=== PATIENT | female | born 1990 | race Caucasian/White ===

== ENCOUNTER 2023-01-18 07:40 | Day surgery (SDC) | payer BC, SELFPAY ==
[2023-01-18] MEDS: DOXYCYCLINE HYCLATE 200 MG in 0.9 % SODIUM CHLORIDE Mini-bag 100 ML 100 MG IVPB (07:25)
[2023-01-18 07:59] VITALS: BP 108/69; PULSE 61; RESP 16; TEMP 36.7; O2SAT 100
[2023-01-18 08:00] VITALS: BMI 25.3
[2023-01-18 08:09] LABS: Hemoglobin* 11.9 gm/dL (12.0-16.0)
[2023-01-18] MEDS: LACTATED RINGERS 1000 ML 1,000 ML 100 ML IV (08:20)
[2023-01-18] MEDS: SODIUM CHLORIDE 0.9 % (FLUSH) 10 ML SYRINGE IVF (08:20)
--- NOTE | 2023-01-18 08:23 | PM.PROC ---
Procedure Note Time Seen by Provider: : Date Seen: 01/18/23 Date of procedure: 01/18/23 Will [facility] bill your pro fee for this procedure?: Yes Procedure Description: Preoperative diagnosis: Swapnil is a 32-year-old 5 para 2123 with a missed at 5 and 5/7 weeks gestation by ultrasound. Postoperative diagnosis: Same Procedure: Suction curettage Anesthesia: Conscious sedation, paracervical block Surgeon: Lucero Benson MD Cashier Office: Not applicable IV fluid: 600 mL Estimated blood loss: 5 mL Specimen: Products of conception to pathology Findings: On exam under anesthesia: the uterus was approximately 8 weeks size, mid-position. Cervical os was closed without active bleeding. Adnexa were without mass or fullness palpable. The uterus sounded to 9 cm. On suction curettage there was a moderate amount of products of conception. Procedure: Swapnil was taken to the operating room where conscious sedation was found to be adequate. She was placed in the dorsal lithotomy position and an exam under anesthesia was performed with with findings stated above. She was then prepped and draped in normal sterile manner. A bivalve speculum was placed in the vagina to visualize the cervix. A paracervical block was placed using 0.5% Marcaine: 5 mL injected at the 4 and 8 o'clock positions on the cervix. The anterior lip of the cervix was grasped with a long Allis clamp. The cervix was dilated to Hegar # 9. A # 9 curved curette was then advanced into the uterus without difficulty. A suction curettage was then performed using 40-50 mmHg pressure. 3 passes with the curette were performed to remove all visualized tissue. The curette was removed and mild, sharp curettage was performed to verify that all of the products of conception had been removed. One last pass with the curved curette was then made to verify that all of the tissue had been removed. The Allis clamp was removed from the anterior lip of the cervix. Nothing was needed to obtain hemostasis. Excellent hemostasis was noted. The speculum was then removed from the vagina. The patient tolerated this procedure well. Sponge, lap and instrument counts were correct x2 the end of the procedure. The patient was awakened from sedation and taken to the recovery area in stable condition.
[2023-01-18] MEDS: BUPIVACAINE 0.5% 30 ML INJECTION (09:04)
[2023-01-18 09:25] VITALS: BP 111/73; PULSE 67; RESP 16; TEMP 36.4; O2SAT 100
[2023-01-18 09:42] VITALS: BP 105/72; PULSE 48; RESP 16; O2SAT 100
--- NOTE | 2023-01-18 09:44 | W.ANESCHARGE ---
Anesthesia Charges Start Date/Time Anesthesia Start Date: 01/18/23 Anesthesia Start Time: 08:50 Stop Date/Time Anesthesia Stop Date: 01/18/23 Anesthesia Stop Time: 09:25
[2023-01-18 10:00] VITALS: BP 107/68; PULSE 55; RESP 16; TEMP 36.5; O2SAT 99
[2023-01-18 10:31] VITALS: BP 102/57; PULSE 68; RESP 16; O2SAT 100
--- NOTE | 2023-01-18 11:43 | W.ANESCHARGE ---
Anesthesia Charges Start Date/Time Anesthesia Start Date: 01/18/23 Anesthesia Start Time: 08:50 Stop Date/Time Anesthesia Stop Date: 01/18/23 Anesthesia Stop Time: 09:25
== END 2023-01-18 10:44 | disposition home or self-care (01) ==
PROVIDERS: Visit Provider Obstetrics & Gynecology
PROC: (CPT 59820; principal; 2023-01-18 09:00)
DX: O02.1 Missed abortion (principal); Z3A.01 Less than 8 weeks gestation of pregnancy
CPT/HCPCS: 59820; 01965; 36415; 85018; 86850; 86900; 86901; 88305; J1100; J1885; J2250; J2405; J2704; J3010; J3490; J7120

== ENCOUNTER 2023-05-08 11:59 | Day surgery (SDC) | payer BC, SELFPAY ==
[2023-05-08] VITALS (54 sets, daily range): BP systolic 92–126; BP diastolic 54–91; PULSE 57–88; RESP 14–20; TEMP 35.7–37.2; O2SAT 93–100
[2023-05-08 12:20] LABS: Basophils Percent Auto 0.3 % (0.0-3.0); Eosinophils Percent Auto 0.1 % (0.0-7.0); Hematocrit 33.7 % (33.0-51.0); Hemoglobin* 11.4 gm/dL (12.0-16.0); Immature Granulocytes Pct Auto 0.2 %; Lymphocytes Percent Auto 11.3 % (20-44); Mean Corpuscular HGB Conc 34 gm/dL (32-36); Mean Corpuscular Hemoglobin 30 pg (26-34); Mean Corpuscular Volume 89 fL (80-100); Monocytes Percent Auto 5.2 % (0.0-11.0); Neutrophils Percent Auto 82.9 % (42.0-72.0); Platelet Count* 311 K/uL (140-440); RDW Coefficient of Variation % 11.6 % (11.5-15.5); Red Blood Count 3.77 m/uL (4.00-5.20); White Blood Count* 13.37 K/uL (4.50-11.00)
[2023-05-08 12:22] LABS: Slide Review Reflex No
[2023-05-08] MEDS: fentaNYL 100 MCG/2 ML inj 50 MCG IVP ×4 (12:24→20:46)
--- NOTE | 2023-05-08 12:25 | CRLHL7_ITS ---
For Patients: As a result of the Century Cures Act, medical imaging exams and procedure reports are released immediately into your electronic medical record. You may view this report before your referring provider. If you have questions, please contact your health care provider. INDICATION: Right lower quadrant pain. Positive test. FINDINGS: No intrauterine gestational sac. Endometrial thickness 6 mm. Uniform echotexture of the myometrium. The left ovary 5 x 3 x 5 cm. Normal color and spectral Doppler blood flow. A dominant 2.6 cm cyst/follicle with other physiologic subcentimeter follicles. Right ovary 3 x 2 x 2 cm. Small cysts/follicles. Normal color and spectral Doppler blood flow. Echogenic heterogeneous material in the retrouterine cul-de-sac and bilateral adnexa does not peristalse like bowel and is suspected to be hemorrhage. IMPRESSION : 1. No intrauterine . Presumed hemorrhage in the retrouterine cul-de-sac and bilateral adnexa concerning for ectopic . Beta HCG is 2677. Gynecology referral recommended for treatment of presumed ectopic. Site of the ectopic is not demonstrated. Dictated by Raymond Daniel MD @ 05/08/2023 2:56:06 PM (Electronically Signed)
--- NOTE | 2023-05-08 12:28 | ED.ABDPAIN ---
HPI - Abdominal Pain General Date Seen: 05/08/23 Chief Complaint: Abdominal Pain Stated Complaint: R side abdominal pain Time Seen by Provider: 05/08/23 12:10 History of Present Illness HPI narrative: This is a pleasant 33-year-old female who is G6, P3 (2 previous miscarriages, diagnosed with a positive test this morning) who is referred from the urgent care in [place] for evaluation of right lower quadrant abdominal pain, rectal pain with a positive test. Per the patient she was and underwent a miscarriage with D and C about 4 months ago in December. It does not sound like there were any complications of that procedure. She has had menstrual cycles for the past few months. She had a menstrual cycle sometime in the middle of March, ending perhaps April 09. Her most recent episode of vaginal bleeding began roughly April 25 for April 26 and ended last week. The. Was typical in terms of length and amount of bleeding, but was a bit early in timing compared to the proceeding cycle. She is sexually active. She has not had any other symptoms of or any suspicion that she might be . She was awoken from sleep at about 3:00 a.m. this morning with right lower quadrant pain. There was intense. It made her nauseous and dizzy. She felt lightheaded but did not faint. He got a bit better after a while but never completely went away. She thought she might need to have a bowel movement but was really not able to successfully pass a stool. She did pass a small BM with no change in her symptoms. She has not had any urinary symptoms. No bloody urine. She is not having any vaginal bleeding or discharge. No suprapubic or uterine cramping. No upper abdominal pain. She is not febrile. She believes she is Rh positive. Because of her persisting pain she went to the urgent care. Later this morning she also began to develop fullness and pain like a pressure in her rectum. She had a rectal exam performed at the urgent care that was normal. She was transferred here by EMS for ultrasound. In route she was having a lot of pain so received fentanyl 100 mcg per EMS. Blood pressure was normal and stable in route. She is not tachycardic. Which did not receive copies of her blood work from the urgent care. Nurses were able to check labs. From 05/08/2023 at 10:40 a.m. labs indicate that she had a positive urine test. This was a urine sample. From 05/08/2023 at 10:56 a.m., CBC showed WBC 12.5, hemoglobin 11.6, platelet count 291. Absolute neutrophil count 10.5. Absolute lymphocyte count 1.3. No other labs from today. Per EHR here at [facility] on 01/18/2023 hemoglobin was 11.9. She had a D&C on 01/18/2023 by disability benefits specialist, Lucero Benson M.D. for missed Related Data Home Medications Medication Instructions Recorded Confirmed No Known Home Medications 01/17/23 01/18/23 Allergies Allergy/AdvReac Type Severity Reaction Status Date / Time penicillin V Allergy Severe Verified 05/08/23 15:07 pseudoephedrine Allergy Severe Hives Verified 05/08/23 15:07 [From [facility]] [facility] Medical History (Updated 05/08/23 @ 16:06 by Rusty Torrez MD) Health care directive on file ?Z78.9 - Other specified health status (ICD-10) History of delivery ?Z87.51 - Personal history of pre-term labor (ICD-10) Vaginal delivery ?O80 - Encounter for full-term uncomplicated delivery (ICD-10) Surgical History (Updated 02/02/23 @ 12:48 by Kate Henriquez) History of D&C ?Z98.890 - Other specified postprocedural states (ICD-10) History of ear surgery ?Z98.890 - Other specified postprocedural states (ICD-10) Family History (Updated 02/02/23 @ 12:50 by Kate Henriquez) Son Thyroid disease Father High blood pressure Emphysema of lung Social History Smoking Status: Never smoker Do you use any of these nicotine containing products: None How often do you have a drink containing alcohol: 2-3 times a week Alcohol type: beer and wine AUDIT-C Alcohol total score: 3 Non-prescribed substance use: denies use service: No Exam Narrative: Exam Narrative: Constitutional: Appears well-developed and well-nourished. Alert. Conversant. Uncomfortable appearing, does not want to lie flat on her back because that puts unusual pain on her rectum. She has spasms of pain with wincing and crying. HENT: Head: Atraumatic. Nose: Nose normal. Mouth/Throat: Oral mucosa is clear and moist. no trismus. Pharynx normal. Tonsils symmetric. No tonsillar enlargement, erythema, or exudate. Eyes: Conjunctivae normal. EOM normal. Pupils equal, round, and reactive to light. No scleral icterus. Neck: Normal range of motion. Neck supple. No tracheal deviation present. Cardiovascular: Normal rate, regular rhythm. No gallop. No friction rub. No murmur heard. Symmetric radial artery pulses Pulmonary/Chest: Effort normal. No stridor. No respiratory distress. No wheezes. No rales. No rhonchi . No tenderness. Abdominal: Soft. Bowel sounds normal. No distension. No mass. Right lower quadrant> suprapubic> right upper quadrant tenderness. No rebound. No guarding. No CVA tenderness. Musculoskeletal: RUE: Normal range of motion. No tenderness. No deformity LUE: Normal range of motion. No tenderness. No deformity RLE: Normal range of motion. No edema. No tenderness. No deformity LLE: Normal range of motion. No edema. No tenderness. No deformity Lymph: No cervical adenopathy. Neurological: Alert and oriented to person, place, and time. Normal strength. CN II-VII intact. No sensory deficit. GCS eye subscore is 4. GCS verbal subscore is 5. GCS motor subscore is 6. Normal coordination Skin: Skin is warm and dry. No rash noted. No pallor. Normal capillary refill. Psychiatric: Normal mood. Normal affect. Const: Vital Signs, click to edit/add: Vital Signs - 24 hr 05/08/23 12:05 05/08/23 12:15 05/08/23 12:20 Temperature 97.7 F Pulse Rate 78 75 Pulse Rate [Right Pulse Oximeter] 85 Respiratory Rate 18 Blood Pressure Blood Pressure [Ri ght Upper Arm] 122/91 H Pulse Oximetry 99 100 100 Oxygen Delivery Me thod Room Air 05/08/23 12:32 05/08/23 13:01 05/08/23 13:54 Temperature Pulse Rate 66 Pulse Rate [Right Pulse Oximeter] Respiratory Rate Blood Pressure 92/62 104/73 Blood Pressure [Ri ght Upper Arm] Pulse Oximetry 100 Oxygen Delivery Me thod 05/08/23 14:00 05/08/23 14:05 05/08/23 14:05 Temperature 96.3 F L Pulse Rate 61 70 Pulse Rate [Right Pulse Oximeter] 63 Respiratory Rate 20 Blood Pressure 99/65 Blood Pressure [Ri ght Upper Arm] 99/65 Pulse Oximetry 99 100 100 Oxygen Delivery Me thod Room Air 05/08/23 14:10 05/08/23 14:20 05/08/23 14:30 Temperature Pulse Rate 63 69 70 Pulse Rate [Right Pulse Oximeter] Respiratory Rate Blood Pressure Blood Pressure [Ri ght Upper Arm] Pulse Oximetry 99 100 100 Oxygen Delivery Me thod 05/08/23 14:32 05/08/23 14:40 05/08/23 14:50 Temperature Pulse Rate 72 67 66 Pulse Rate [Right Pulse Oximeter] Respiratory Rate Blood Pressure 107/65 Blood Pressure [Ri ght Upper Arm] Pulse Oximetry 97 97 100 Oxygen Delivery Me thod 05/08/23 15:00 05/08/23 15:01 05/08/23 15:14 Temperature Pulse Rate 68 73 76 Pulse Rate [Right Pulse Oximeter] Respiratory Rate Blood Pressure 116/76 Blood Pressure [Ri ght Upper Arm] Pulse Oximetry 100 100 100 Oxygen Delivery Me thod 05/08/23 15:20 05/08/23 15:30 05/08/23 15:32 Temperature Pulse Rate 69 71 78 Pulse Rate [Right Pulse Oximeter] Respiratory Rate Blood Pressure 96/60 Blood Pressure [Ri ght Upper Arm] Pulse Oximetry 99 100 100 Oxygen Delivery Me thod 05/08/23 15:40 05/08/23 15:50 Temperature Pulse Rate 74 69 Pulse Rate [Right Pulse Oximeter] Respiratory Rate Blood Pressure Blood Pressure [Ri ght Upper Arm] Pulse Oximetry 99 97 Oxygen Delivery Me thod Course Course Hospital Course: I saw the patient when she arrive by EMS and took report from the EMS provider along with patient's nurse. We performed our initial primary survey. She was hemodynamically stable but uncomfortable. Pain meds ordered. I performed a limited bedside ultrasound at 1220. Procedure: Abdominal ultrasound/fast exam Indication: test, abdominal pain, eval for free intraperitoneal fluid or signs of ectopic Using the convex a array abdominal probe we obtained suprapubic images in the transverse and sagittal plane as well as right upper quadrant images and left upper quadrant images. There is no definite free fluid. Although I am limited by my ultrasound, I am not able to identify a definitive IUP. Not able to confidently identify right ovary. Findings: No free fluid. Vital Signs Vital signs: Initial Vital Signs Temperature 97.7 F 05/08/23 12:05 Temperature Source Temporal Artery Scan 05/08/23 12:05 Pulse Rate 85 05/08/23 12:05 Respiratory Rate 18 05/08/23 12:05 Blood Pressure 122/91 H 05/08/23 12:05 Blood Pressure Mean 101 05/08/23 12:05 Blood Pressure Position Sitting 05/08/23 12:05 Pulse Oximetry 99 05/08/23 12:05 Oxygen Delivery Method Room Air 05/08/23 12:05 Vital Signs Temperature 97.7 F 05/08/23 12:05 Pulse Rate 85 05/08/23 12:05 Respiratory Rate 18 05/08/23 12:05 Blood Pressure 122/91 H 05/08/23 12:05 Pulse Oximetry 99 05/08/23 12:05 Oxygen Delivery Method Room Air 05/08/23 12:05 Temperature 96.3 F L 05/08/23 14:05 Pulse Rate 69 05/08/23 15:50 Respiratory Rate 20 05/08/23 14:05 Blood Pressure 96/60 05/08/23 15:32 Pulse Oximetry 97 05/08/23 15:50 Oxygen Delivery Method Room Air 05/08/23 14:05 MDM - Abdominal Pain MDM Narrative Medical decision making narrative: 33-year-old female who has 2 previous miscarriages, presenting to the ER today from urgent care with concern for right lower quadrant abdominal pain within a surprise positive test. Last episode of vaginal bleeding was about 2 weeks ago but last normal period was perhaps 4 weeks ago. She recently had a miscarriage about 4 months ago so actual date of ovulation and conception is unclear. Initial differential included ruptured ectopic , ovarian cyst or torsion, hemorrhagic cyst, kidney stone, pyelonephritis, appendicitis, among other pathology. Patient was initially quite uncomfortable at presentation. She received serial doses of fentanyl which were only moderately effective. Changed a lot it was more effective for pain control. She remained hemodynamically stable with blood pressure in the low normal range-96/50s. Laboratory workup shows anemia with a hemoglobin 11.9 but this is similar to an unchanged from baseline in December. Given my initial concern we did obtain a bedside fast exam to look for obvious hemoperitoneum at the time presentation and it was normal. We contacted OB to make her aware of this patient and our concern for ectopic. During multiple bedside rechecks she remained hemodynamically stable and pain was better controlled with IV Dilaudid. Patient was sent for a formal obstetrical ultrasound which suggested probable pelvic free fluid (blood) without a clear source of ectopic . There was no evidence for IUP. Since quantitative hCG was 2700, above the discriminatory zone, were highly concerned for ectopic. Patient's pain was improved after Dilaudid and she was remaining hemodynamically stable. Discussed again with OB. Differential would include ruptured ectopic, ruptured hemorrhagic cyst with early viable IUP, as well as other non gynecologic causes of pain such as appendicitis. Ob did not want to take the patient immediately to the OR. We decided to obtain CT imaging to rule out other causes of pain with the plan being that if the patient remained hemodynamically stable she would be admitted to the hospital for pain control, monitoring, serial hemoglobins and plan for repeat ultrasound tomorrow morning. CT scan came back. I reviewed the images myself and was concerned about hemoperitoneum. I called [facility] radiologist to ask them to do a stat read. I called back to [facility] and was able actually talked to the radiologist at 1:59 p.m.. He confirms that this is highly suspicious for ruptured ectopic . It appears that the is probably affecting the left fallopian tube (not the right, where most of her pain was). I again contacted Obstetrics and she came to the ER to evaluate the patient. I updated the patient and her . Patient otherwise healthy. She has no underlying heart or lung disease. She has been NPO since last night. Heart and lungs are clear. She would be an ASA category 1. Lab Data Labs: Lab Results 05/08/23 05/08/23 05/08/23 Range/Units 12:07 12:36 Unknown WBC 13.37 H (4.50-11.00) K/uL RBC 3.77 L (4.00-5.20) m/uL Hgb 11.4 L (12.0-16.0) gm/dL Hct 33.7 (33.0-51.0) % MCV 89 (80-100) fL MCH 30 (26-34) pg MCHC 34 (32-36) gm/dL RDW Coeff of Harjeet 11.6 (11.5-15.5) % Plt Count 311 (140-440) K/uL Neut % (Auto) 82.9 H (42.0-72.0) % Lymph % (Auto) 11.3 L (20-44) % [place] % (Auto) 5.2 (0.0-11.0) % Eos % (Auto) 0.1 (0.0-7.0) % Baso % (Auto) 0.3 (0.0-3.0) % Neut # (Auto) 11.10 H (1.7-7.0) K/uL Lymph # (Auto) 1.50 (0.90-2.90) K/uL Renville # (Auto) 0.70 (0.00-0.90) K/UL Eos # (Auto) 0.00 (0.00-0.50) K/uL Baso # (Auto) 0.00 (0.00-0.30) K/uL Abs Immat Gran (auto) 0.00 (0.00-0.30) K/uL Imm/Tot Granulo (auto) 0.2 % Sodium 135 (135-149) mmol/L Potassium 3.8 (3.6-5.1) mmol/L Chloride 102 (96-114) mmol/L Carbon Dioxide 25 (20-32) mmol/L BUN 13 (5-24) mg/dL Creatinine 0.6 (0.5-1.5) mg/dL Estimated GFR 120 ml/min Glucose 114 (60-115) mg/dL Calcium 9.0 (8.4-10.6) mg/dL HCG, Quant 2677.70 mIU/mL Urine Color Yellow (Yellow) Urine Appearance Clear (Clear) Urine pH 6.0 (5.0-8.5) Ur Specific Friona 1.020 (1.000-1.030) Urine Protein Negative (Negative) Urine Glucose (UA) Negative (Negative) Urine Ketones Negative (Negative) Urine Blood Negative (Negative) Urine Nitrite Negative (Negative) Urine Bilirubin Negative (Negative) Urine Urobilinogen 0.2 (0.2-1.0) Ur Leukocyte Esterase Negative (Negative) Urine RBC 0-2 (0-2) Urine WBC 0-2 (0-5) Ur Squamous Epith Cells Few (None-Few) Urine Bacteria None (None) Blood Type O Positive Antibody Screen NEGATIVE Imaging Data US - abdomen: Attestation: I have reviewed the pertinent imaging results. Radiologist's impression: IMPRESSION : 1. No intrauterine . Presumed hemorrhage in the retrouterine cul-de-sac and bilateral adnexa concerning for ectopic . Beta HCG is 2677. Gynecology referral recommended for treatment of presumed ectopic. Site of the ectopic is not demonstrated. Discharge Plan Discharge Clinical Impression: Hemoperitoneum due to rupture of left tubal ectopic Patient Disposition: XFER to OR Condition: Guarded Follow Up/Referrals: Provider,Not a Local [Referring] -
[2023-05-08] MEDS: ONDANSETRON 2 MG/ML inj 4 MG IVP (12:29)
[2023-05-08 13:06] LABS: Chloride* 102 mmol/L (96-114)
[2023-05-08 13:07] LABS: Potassium* 3.8 mmol/L (3.6-5.1); Sodium* 135 mmol/L (135-149)
[2023-05-08 13:09] LABS: Creatinine* 0.6 mg/dL (0.5-1.5); Estimated Glomerular Filt Rate 120 ml/min
[2023-05-08 13:10] LABS: Blood Urea Nitrogen* 13 mg/dL (5-24); Carbon Dioxide* 25 mmol/L (20-32); Glucose* 114 mg/dL (60-115)
[2023-05-08] MEDS: HYDROmorphone 0.5 mg/0.5 ml inj IVP ×3 (13:38→20:19)
[2023-05-08 14:03] LABS: Appearance Urine Clear (Clear); Bilirubin Urine Negative (Negative); Blood Urine Negative (Negative); Color Urine Yellow (Yellow); Glucose Urine Negative (Negative); Ketones Urine Negative (Negative); Leukocyte Esterase Urine Negative (Negative); Nitrite Urine Negative (Negative); Protein Urine Negative (Negative); Urobilinogen Urine 0.2 (0.2-1.0)
--- NOTE | 2023-05-08 14:07 | ED.NURSE ---
Pain has improved since given Dilaudid. Pt is reading in room, seeming to do okay
[2023-05-08 14:17] LABS: RBC Urine 0-2 (0-2); Squamous Epithelial Cell Urine Few (None-Few); WBC Urine 0-2 (0-5)
--- NOTE | 2023-05-08 14:53 | CRLHL7_ITS ---
For Patients: As a result of the Century Cures Act, medical imaging exams and procedure reports are released immediately into your electronic medical record. You may view this report before your referring provider. If you have questions, please contact your health care provider. INDICATION: Right lower quadrant abdominal pain. TECHNIQUE: CT abdomen and pelvis acquired with 65 cc Isovue 370 IV contrast. COMPARISON: Pelvic ultrasound 05/08/2023. FINDINGS: Lower chest: Unremarkable. Liver: Unremarkable. Normal in size and attenuation. No suspicious masses. Gallbladder and bile ducts: Unremarkable. No stones or inflammation. No biliary ductal dilatation. Spleen: Unremarkable. Normal in size. No masses. Adrenal glands: Unremarkable. No nodules. Pancreas: Unremarkable. No mass or inflammation. Kidneys: Unremarkable. No suspicious masses, stones, or hydronephrosis. GI tract: Unremarkable. Normal in caliber. No sign of mass or inflammation. Normal appendix. Lymph nodes: No lymphadenopathy. Vasculature: Unremarkable. Omentum/Peritoneum/Abdominal Wall: Small volume hemoperitoneum. No free air. Pelvis: Edematous hemorrhagic left adnexa. Bones: Unremarkable for age. IMPRESSION: Small volume hemoperitoneum, likely related to ruptured ectopic given provided history. Given asymmetric edematous hemorrhagic left adnexa, this is likely the site of ectopic . Findings were discussed with Dr. Torrez by Dr. Fiore on 05/08/2023 at 3:59 p.m. Please note that all CT scans at this facility use dose modulation, iterative reconstruction, and/or weight-based dosing when appropriate to reduce radiation dose to as low as reasonably achievable. Dictated by Nicolas Fiore MD @ 05/08/2023 4:02:36 PM (Electronically Signed)
--- NOTE | 2023-05-08 15:16 | ED.NURSE ---
pt reports improved pain, does not feel as much pressure on her bottom.
--- NOTE | 2023-05-08 16:37 | P.GYNCN_ITS ---
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 Patient was seen earlier today at urgent care and transferred to our hospital after test was positive for further evaluation. Patient did not know she was . Patient had lab work completed as well as imaging. HCG was found 2677, hemoglobin at 11.4, WBC: 13.3. Pelvic US completed and final impression No intrauterine . Presumed hemorrhage in the retrouterine cul-de-sac and bilateral adnexa concerning for ectopic . Beta HCG is 2677. Gynecology referral recommended for treatment of presumed ectopic. Site of the ectopic is not demonstrated. A abdominal/pelvic CT scan also completed and final impression: Small volume hemoperitoneum, likely related to ruptured ectopic given provided history. Given asymmetric edematous hemorrhagic left adnexa, this is likely the site of ectopic . Upon evaluation at ER patient is found stable, pain has not been completely managed by IV pain medication. Has experienced some nausea, no vomiting. Has not eaten since last night. Denies vaginal bleeding, abnormal vaginal discharge, denies constipation, diarrhea, dysuria, urgency or frequency. Patient is definitely upset as she experienced a missed December of 2022, this would have been a wanted . 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 No history of STDs, no history of abnormal Pap smears. Past medical history: None Medications: Please see list Allergies: Penicillin, pseudoephedrine Surgical history: Multiple ear surgeries in the , suction D&C x2 2018 and 2022. Social history: Patient is , [id number], she has a bachelor's degree, no smoking, no E cigarette use, no alcohol use, no recreational drug use, no concerns about safety or abuse. Exercises frequently. Family history: Father with history of hyperlipidemia and hypertension cc:: CC: Radha Gamboa MD [facility] Medical History (Updated 05/08/23 @ 16:06 by Rusty Torrez MD) Health care directive on file ?Z78.9 - Other specified health status (ICD-10) History of delivery ?Z87.51 - Personal history of pre-term labor (ICD-10) Vaginal delivery ?O80 - Encounter for full-term uncomplicated delivery (ICD-10) Surgical History (Updated 02/02/23 @ 12:48 by Kate Henriquez) History of D&C ?Z98.890 - Other specified postprocedural states (ICD-10) History of ear surgery ?Z98.890 - Other specified postprocedural states (ICD-10) Family History (Updated 02/02/23 @ 12:50 by Kate Henriquez) Son Thyroid disease Father High blood pressure Emphysema of lung Social History Smoking Status: Never smoker Do you use any of these nicotine containing products: None How often do you have a drink containing alcohol: 2-3 times a week Alcohol type: beer and wine AUDIT-C Alcohol total score: 3 Non-prescribed substance use: denies use service: No Meds Home Medications and Allergies Home Medications Medication Instructions Recorded Confirmed Type No Known Home Medications 01/17/23 01/18/23 History Allergies Allergy/AdvReac Type Severity Reaction Status Date / Time penicillin V Allergy Severe Verified 05/08/23 15:07 pseudoephedrine Allergy Severe Hives Verified 05/08/23 15:07 [From [facility]] 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 GENERAL APPEARANCE: Alert, cooperative female in no acute distress. MOOD & AFFECT: Normal. ABDOMEN: Positive bowel sound. No guarding, no rebound. Tender to deep palpation of lower abdomen. : No abnormal discharge or bleeding. EXTREMITIES: Nonedematous. Well perfused. Nontender. 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 - Results Labs Labs: Short CBC 05/08/23 Range/Units 12:07 WBC 13.37 H (4.50-11.00) K/uL Hgb 11.4 L (12.0-16.0) gm/dL Hct 33.7 (33.0-51.0) % Plt Count 311 (140-440) K/uL BMP 05/08/23 12:07 Sodium 135 Potassium 3.8 Chloride 102 Carbon Dioxide 25 BUN 13 Creatinine 0.6 Glucose 114 Calcium 9.0 Urine 05/08/23 Range/Units Unknown Urine Color Yellow (Yellow) Urine Appearance Clear (Clear) Urine pH 6.0 (5.0-8.5) Ur Specific [place] 1.020 (1.000-1.030) Urine Protein Negative (Negative) Urine Glucose (UA) Negative (Negative) Assessment and Plan Assessment and plan (1) Hemoperitoneum due to rupture of left tubal ectopic : Status: Acute Plan 33 y/o who is seen today after the sudden onset of sharp abdominal/pelvic pain, mostly localized to the RLQ. Patient with positive test. Imaging findings highly concerning for ruptured ectopic . Vital signs have been stable and hemoglobin found slightly low at 11.4mg/dL. Discussion with patient and about findings. In the setting of suspected ruptured ectopic recommended intervention is prompt surgical intervention. Discussed that at this time, it is hard to specifically tell where is the located, but that we believe it is on the left fallopian tube due to CT imaging findings. Since she has been stable and CT findings are not consistent for widespread hemoperitoneum, recommendation is to proceed with l aparoscopic surgery. Discussed that recommendation would be to remove the affected fallopian tube, in the scenario where the is located in an ovary we could try to remove the ectopic and try to salvage the ovary but there is always a risk of needing to remove the affected ovary due to persistent bleeding. Discussed that usually this is an ambulatory procedure but since it is late already that I would expect that she will need to spend the night, discussed post op goals prior to discharge. Discussed risks associated with surgery such as bleeding and needing an emergency blood transfusion, infection, damage to organs nearby such as the bladder, intestine, ureters, risk of blood clots. Discussed interventions to decrease risks. Discussed recovery and restrictions after surgery such as avoiding heavy lifting for at least 3-4 weeks after surgery. Discussed pathology results would be received within a week of surgery and we will notify them, discussed recommended postop follow-up visit in 2 weeks in the clinic. OR crew will be notified and will proceed with surgical intervention within the next hour. Patient and are in agreement with plan.
[2023-05-08 17:15] LABS: Basophils Percent Auto 0.2 % (0.0-3.0); Eosinophils Percent Auto 0.1 % (0.0-7.0); Hematocrit 31.9 % (33.0-51.0); Immature Granulocytes Pct Auto 0.2 %; Mean Corpuscular HGB Conc 35 gm/dL (32-36); Mean Corpuscular Hemoglobin 31 pg (26-34); Mean Corpuscular Volume 89 fL (80-100); Neutrophils Percent Auto 86.5 % (42.0-72.0); Platelet Count* 281 K/uL (140-440); RDW Coefficient of Variation % 11.7 % (11.5-15.5); Red Blood Count 3.58 m/uL (4.00-5.20); White Blood Count* 15.09 K/uL (4.50-11.00)
[2023-05-08 17:23] LABS: Slide Review Reflex No
[2023-05-08 17:35] LABS: Prothrombin Time 13.8 Seconds
[2023-05-08 17:36] LABS: Partial Thromboplastin Time* 24 Seconds (23-33)
[2023-05-08] MEDS: LACTATED RINGERS 1000 ML 1,000 ML 75 ML IV (17:36)
--- NOTE | 2023-05-08 17:39 | ED.NURSE ---
Pt taken back to OR.
[2023-05-08] MEDS: BUPIVACAINE 0.5% 30 ML INJECTION (18:10)
--- NOTE | 2023-05-08 20:16 | P.ANES_ITS ---
Anesthesia Charges Start Date/Time Anesthesia Start Date: 05/08/23 Anesthesia Start Time: 17:36 Stop Date/Time Anesthesia Stop Date: 05/08/23 Anesthesia Stop Time: 20:14 Summary Emergency: [facility] REPRESENTATIVE
--- NOTE | 2023-05-08 20:50 | P.GYNPRC_ITS ---
Procedure Note Date of procedure: 05/08/23 Pre-op diagnosis: Suspected ruptured left ectopic Post-op diagnosis: other (Bleeding left ovarian corpus luteum cyst, of unknown location) Procedure: Diagnostic laparoscopy, evacuation of hemoperitoneum, left ovarian cystectomy, right posterior cul de sac biopsy. Anesthesia: GETA Complications: None Surgeon: Libertad Gamboa MD Estimated blood loss (mL): 50 Pathology: specimen obtained, sent to pathology Condition: stable Disposition: floor Findings: Sterile speculum exam showed a closed, multiparous cervix without evidence of blood or abnormal discharge, no gross lesions. Bimanual exam showed a uterus of about 8-9cm. Intra abdominal survey: Hemoperitoneum, pelvis full of blood and blood clots in the posterior cul de sac, blood seen at the level of the liver with the patient in supine position, hemoperitoneum of 300-400mL. Grossly normal intestines, liver, stomach and appendix. Grossly normal bilateral fallopian tubes, left ovary with 2-3 small cystic structures, one of these was seen to have bright red oozing/bleeding during initial survey. Grossly normal right ovary. Right side posterior cul de sac, medial to the right uterosacral ligament an area of disruption of the peritoneum seen, circular suspicious for disruption by the larger laparoscopic suction device. Procedure Description: Patient was taken to the OR with IV fluid running and pneumatic compression stockings applied to the lower extremities. General anesthesia was obtained without difficulty. The patient was placed in the dorsal lithotomy position with Billy type stirrups with knee bent at 30 degree angles. Patient was prepared and draped under usual sterile technique. Examination under anesthesia with findings as above. The bladder was emptied and Perez catheter placed. Speculum was placed in the vagina. Findings as above. I then changed gloves and attention was placed to the abdomen. Periumbilical skin was infiltrated with 0.25% plain Marcaine. Two Allis clamps were applied to the periumbilical skin for manual elevation of the abdomen. A vertical skin incision was made in the um bilical fold. 5 mm Optiview trocar introduced into the peritoneal cavity without difficulty. Direct visualization confirmed intraperitoneal placement. Pneumoperitoneum was established with CO2 gas to a pressure of 15mmHg. Findings as above. The Trendelenburg position was obtained to facilitate pelvic exposure. Two 5 mm trocars were inserted on the bilateral lower quadrants under direct laparoscopic visualization. Blood clots in the posterior cul de sac were suctioned, but these were too large to completely remove with the small suction/medication coordinator. The left 5mm abdominal port was extended to accommodate a 10mm port and I was able to introduce a larger suction to clear large amount of blood clots. I then turned my attention to the left ovary and oozing from the left ovarian cyst, this was opened to completely evaluate for ectopic . This was found to be a corpus luteum cyst. To be able to accommodate a laparoscopic monopolar paddle, a 4th abdominal port was placed at the level of the umbilicus at least 5cm to the left of the umbilicus and under direct visualization. I tried to coagulate only the bleeding vessels over the cyst, but this was unsuccessful and I had to remove the cystic structure essentially completely with LigaSure device. The base of the cyst, bleeding ovarian stroma was sequentially coagulated utilizing Monopolar device. Hemostasis was secured. Attention was again placed to the posterior cul de sac and peritoneal are as previously described that was seen to have some mild oozing. This was evaluated to be medial to the right uterosacral ligament and utilizing Monopolar device bleeding vessels were coagulated. Bam was also placed to further secure hemostasis. Pneumoperitoneum was allowed to escape to decrease intra-abdominal pressure and reevaluate bleeding sites previously identified and these sites were noted to be hemostatic. Pneumoperitoneum was obtained again and again the abdomen and pelvis were thoroughly inspected. Utilizing a Carlos-Enrique laparoscopic port closure system the 10mm trocar site fascia was closed utilizing Vicryl 0 suture. Trocars removed under direct visualization. The pneumoperitoneum was released, and correct instrument counts were confirmed. Skin incisions were closed with 4-0 Monocryl sutures in a subcuticular fashion. The patient was taken to the recovery room in a stable condition. To the floor for continued overnight observation, since no ectopic identified and corpus luteum removed during surgery, differential diagnosis could include a developing intrauterine and would recommend progesterone supplementation until about 12-13 weeks. This was ordered today.
[2023-05-08] MEDS: KETOROLAC 30 MG/ML inj IVP (21:54)
[2023-05-08] MEDS: LACTATED RINGERS 1000 ML 1,000 ML 125 ML IV (21:55)
[2023-05-09] VITALS (12 sets, daily range): BP systolic 86–105; BP diastolic 47–63; PULSE 70–93; RESP 14–18; TEMP 36.7–37.3; O2SAT 97–99
[2023-05-09] MEDS: OXYCODONE 5 MG TABLET PO ×3 (02:30→14:30)
[2023-05-09 02:43] LABS: Hematocrit 29.8 % (33.0-51.0); Hemoglobin* 9.9 gm/dL (12.0-16.0); Immature Granulocytes Pct Auto 0.1 %; Lymphocytes Percent Auto 4.8 % (20-44); Mean Corpuscular HGB Conc 33 gm/dL (32-36); Mean Corpuscular Hemoglobin 30 pg (26-34); Mean Corpuscular Volume 90 fL (80-100); Monocytes Percent Auto 5.8 % (0.0-11.0); Neutrophils Percent Auto 89.3 % (42.0-72.0); Platelet Count* 262 K/uL (140-440); RDW Coefficient of Variation % 11.8 % (11.5-15.5); White Blood Count* 13.52 K/uL (4.50-11.00)
[2023-05-09 02:46] LABS: Slide Review Reflex No
[2023-05-09 02:56] LABS: Creatinine* 0.6 mg/dL (0.5-1.5); Estimated Glomerular Filt Rate 120 ml/min
[2023-05-09] MEDS: KETOROLAC 30 MG/ML inj IVP ×2 (04:09→09:44)
[2023-05-09] MEDS: LACTATED RINGERS 1000 ML 1,000 ML 125 ML IV (05:09)
--- NOTE | 2023-05-09 07:47 | PC.NURSE ---
Pt alert and oriented x3. Afebrile. Pt reports 4/10 pain in abdomen, pain managed with PRN medications. Pt has 4 lap sites that are CDI. Bowel sounds are active. Pt had soft blood pressures overnight corrections corporal MD Gamboa updated,?CBC was ordered, pt?s hbg was 9.9, updated, orders were given to continue to monitor with hourly vitals.?Pt reports having soft blood pressures for baseline. ?I think I have only ever been 120 or higher twice in my life, I generally run in low 100s or high 90s.? Pt?s who is at bedside confirmed this as well.?Pt denies chest pain, SOB, and N/V. Pt was able to sit and stand at bed side for a few mins but reported feeling ?a little lightheaded? while standing and sat back down. Pt has linton catheter in place, it is patent and draining. ?
--- NOTE | 2023-05-09 13:39 | P.DS_ITS ---
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 Indication for surgery: Suspicion of a rupture left ectopic . Intraoperative findings were notable for: Sterile speculum exam showed a closed, multiparous cervix without evidence of blood or abnormal discharge. Uterus of about 8cm. Intra abdominal survey: Hemoperitoneum, pelvis full of blood and blood clots in the posterior cul de sac, blood seen at the level of the liver with the patient in supine position, hemoperitoneum of 300-400mL. Grossly normal intestines, liver, stomach and appendix. Grossly normal bilateral fallopian tubes, left ovary with 2-3 small cystic structures, one of these was seen to have bright red bleeding,during initial survey. Grossly normal right ovary. Right side posterior cul de sac, medial to the right uterosacral ligament an area of disruption of the peritoneum seen, circular suspicious for disruption by the larger laparoscopic suction device. She had an uncomplicated surgery but unfortunately no visible ectopic was seen. Most likely source of her hemoperitoneum is a ruptured left ovarian cyst which was the corpus luteum cyst. Thus, I extensively discussed with patient that her status is of unknown location. This requires close follow up to determine if this is a viable or nonviable . We might never know the exact location of the but we can not determine whether this is viable or not. We do this by trending beta-hCG and possible repeat imaging. If her beta HCGs is rising inappropriately, stays stagnant, or falling, then this would be consider a nonviable and we can offer her treatment in the form of methotrexate. Importantly, I discussed that her corpus luteum cyst was disrupted during the surgery. She will need progesterone supplementation to maintain an intrauterine . Given that there is a chance that this could be an early intrauterine , I recommended progesterone supplementation. Patient became very tearful at this. She does not know if she wants to do prolonged follow up. She had a of unknown viability her last and ended up need a D&C. She had a difficult experience with all the follow ups required. She is wondering if she can opt for a termination. I reassured her that it's entirely her choice how to proceed forward. She and her spouse have not had a chance to thoroughly discuss the options but she's feel overwhelmed with this whole experience. This is very understandable as emergency surgery is scary and we still don't know where her is. She and her spouse will discuss this further. For now, I recommend beta HCG tomorrow and a consult with an OBGYN in clinic sometime this week when we have more information. Postoperative course has been uneventful. Vitals have been stable. She has remained afebrile. Today, on postoperative day 1, she reports the pain is well controlled. She has been able to ambulate Without difficulty. She is tolerating regular diet. She is passing flatus. Perez catheter has been removed, and she is voiding without difficulty. Hospital Course: I saw the patient when she arrive by EMS and took report from the EMS provider along with patient's nurse. We performed our initial primary survey. She was h emodynamically stable but uncomfortable. Pain meds ordered. I performed a limited bedside ultrasound at 1220. Procedure: Abdominal ultrasound/fast exam Indication: test, abdominal pain, eval for free intraperitoneal fluid or signs of ectopic Using the convex a array abdominal probe we obtained suprapubic images in the transverse and sagittal plane as well as right upper quadrant images and left upper quadrant images. There is no definite free fluid. Although I am limited by my ultrasound, I am not able to identify a definitive IUP. Not able to confidently identify right ovary. Findings: No free fluid. 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0 Ur Specific [place] 1.020 Urine Protein Negative Urine Glucose (UA) Negative Urine Ketones Negative Urine Blood Negative Urine Nitrite Negative Urine Bilirubin Negative Urine Urobilinogen 0.2 Ur Leukocyte Esterase Negative Urine RBC 0-2 Urine WBC 0-2 Ur Squamous Epith Cells Few Urine Bacteria None 05/08/23 16:45 WBC 15.09 H RBC 3.58 L Hgb 11.0 L Hct 31.9 L MCV 89 MCH 31 MCHC 35 RDW Coeff of Harjeet 11.7 Plt Count 281 Neut % (Auto) 86.5 H Lymph % (Auto) 9.0 L [place] % (Auto) 4.0 Eos % (Auto) 0.1 Baso % (Auto) 0.2 Neut # (Auto) 13.10 H Lymph # (Auto) 1.40 [place] # (Auto) 0.60 Eos # (Auto) 0.00 Baso # (Auto) 0.00 Abs Immat Gran (auto) 0.00 Imm/Tot Granulo (auto) 0.2 INR APTT Creatinine Estimated GFR Urine Color Urine Appearance Urine pH Ur Specific [place] Urine Protein Urine Glucose (UA) Urine Ketones Urine Blood Urine Nitrite Urine Bilirubin Urine Urobilinogen Ur Leukocyte Esterase Urine RBC Urine WBC Ur Squamous Epith Cells Urine Bacteria Procedures Procedures: Procedures Operation Date: 05/08/23 17:45 Actual Procedure Side Surgeon p DIAGNOSTIC LAPAROSCOPY, EVACUATION OF PNEUMOPERITONEUM, REMOVAL OF BLEEDING LEFT CORPUS LUTEUM CYST Radha Gamboa MD Discharge Plan Discharge Disposition: Home, Self-Care Discharging Surgeon: Myesha Gutierrez MD Follow-Up Appointment: Beta HCG on 05/10/2023. Follow up with [facility] and consult sometime this week Prescriptions: No Action No Known Home Medications Activity Level: No strenuous activity Activity Detail: Pelvic rest until outcome is established. of unknown location. Discharge Diet: Regular Patient Instructions: Acetaminophen (By mouth), Laxative, Stool Softeners (By mouth) (Doculax, Colace, Colace Clear, DSS), Oxycodone, Rapid Release (By mouth), Progesterone (Into the vagina), Surgical Site Infections (DC) Forms: Work/School Release Follow-up: [facility] [Provider Group] - 05/10/23 1:45 pm ( Lab test @ 1:45, [facility] at 2:00 [facility].) Radha Gamboa MD [Staff Physician] - 05/13/23 10:15 am ([facility].) Provider,Not a Local [Referring] - Discharge Orders: Discharge Order (Routine); Ordered 05/09/23 Ordered By: Myesha Gutierrez
--- NOTE | 2023-05-09 19:22 | PC.NURSE ---
shift note: vss stable. pt up ambulating in vivas and room w/o dizziness. lap site x4 intact. abd distended but soft. pt not passing flatus. pt tolerating regular diet. pt voided 400cc. Dr. Gutierrez updated on pt's condition. Pt dc'd to home after review of activity, new meds and pain scale. IV dc'd intact rt AC. Belongings sent with pt at [facility].
== END 2023-05-09 16:45 | disposition home or self-care (01) ==
LOC: ED 16:06 → SS 16:14 → MEDSURG 21:20
PROVIDERS: Emergency Provider Emergency Medicine; PCP Family Medicine; Visit Provider Obstetrics & Gynecology
PROC: (CPT 59150; principal; 2023-05-08 17:30)
DX: O00.90 Unspecified ectopic pregnancy without intrauterine pregnancy (principal); N83.12 Corpus luteum cyst of left ovary; K66.1 Hemoperitoneum
CPT/HCPCS: 58662; 49321; 49322; 36415; 74177; 76801; 76817; 76830; 76856; 80048; 81001; 82565; 840; 84702; 85025; 85610; 85730; 86850; 86900; 86901; 88305; 88342; 93976; 99140; 99285; A9270; J0330; J0665; J1100; J1170; J1885; J2175; J2250; J2405; J2704; J3010; J7120; Q9967

== ENCOUNTER 2023-05-10 14:05 | Outpatient (CLI) | payer BC, SELFPAY ==
--- NOTE | 2023-05-10 14:00 | CRLHL7_ITS ---
For Patients: As a result of the Century Cures Act, medical imaging exams and procedure reports are released immediately into your electronic medical record. You may view this report before your referring provider. If you have questions, please contact your health care provider. INDICATION: Follow-up possible ectopic COMPARISON: 05/08/2013 TECHNIQUE: Real-time delacruz-scale imaging of the pelvis was performed. FINDINGS: Blood products within the cul-de-sac again noted with a volume of 16 cc. Endometrium measures 7 millimeters. Uterus measures 8.5 x 3.7 x 4.8 cm. No intrauterine . Right ovary measures 2.5 x 1.6 x 1.7 cm. Left ovary measures 4.0 x 2.0 x 2.2 cm. There is a small cyst within the left ovary measuring 1.8 cm. IMPRESSION: Blood products in the cul de sac again noted with a volume of 16 cc. No IUP. No discernible ectopic although findings are still suspicious for ectopic given the prior imaging. Current beta hCG not available. Dictated by Jorge White MD @ 05/11/2023 1:25:23 PM (Electronically Signed)
== END 2023-05-10 14:06 | disposition home or self-care (01) ==
LOC: US 14:05
PROVIDERS: PCP Family Medicine; Visit Provider Obstetrics & Gynecology
DX: O36.80X0 Pregnancy with inconclusive fetal viability, not applicable or unspecified (principal); R10.31 Right lower quadrant pain
CPT/HCPCS: 76830; 76856; 84702

== ENCOUNTER 2023-05-13 11:35 | Outpatient (CLI) | payer BC, SELFPAY | END 2023-05-13 11:36 | disposition home or self-care (01) | LOC: NFLDREF 11:36 | PROVIDERS: PCP Family Medicine; Visit Provider Obstetrics & Gynecology | DX: O00.90 Unspecified ectopic pregnancy without intrauterine pregnancy (principal) | CPT/HCPCS: 84702 ==

== ENCOUNTER 2023-06-08 12:37 | Outpatient (CLI) | payer BC, SELFPAY | END 2023-06-08 12:38 | disposition home or self-care (01) | LOC: NFLDREF 12:40 | PROVIDERS: PCP Family Medicine; Visit Provider Obstetrics & Gynecology | DX: O00.90 Unspecified ectopic pregnancy without intrauterine pregnancy (principal) | CPT/HCPCS: 84702 ==

== ENCOUNTER 2024-05-26 08:24 | Outpatient (CLI) | payer BC, SELFPAY ==
[2024-05-26] VITALS (7 sets, daily range): BP systolic 114; BP diastolic 71; PULSE 81–116; RESP 17; TEMP 36.7; O2SAT 96–98
--- OUTSIDE RECORDS SUMMARY | 2024-05-26 08:25 | XMS_ITS | Continuity of Care Document ---
Author Organization [facility] Address [address] [place] [address] Insurance Providers Payer Plan Claims Address Claims Phone Policy Number Group Number Relation Employer Guarantor Name Guarantor Guarantor Address Guarantor Phone [employer] [id number] Self Swapnil Maurice [address] [place] [id number] [employer] [address] [address], [place] [address] [phone] Self Swapnil Leahleightonray [address] [place] [id number] Problems Unknown Problems Results No Results Allergies, adverse reactions, alerts No known allergies and adverse reactions Medications No administered medications reported Vital Signs Date Vital Result Comment 04/20/2024 Body Height [id number] m Body Weight 67.999128159583 kg Body Mass Index 27.96 kg/m2 Social History No smoking Hx information available
--- OUTSIDE RECORDS SUMMARY | 2024-05-26 08:25 | XMS_ITS | Clinical Summary ---
Author Organization [employer] [facility] Address [place] [address] Care Team Providers Care Field Health Officer Name Role Phone Fede, Bianca Orlando MD Primary Care Provider Allergies Active Allergy Reactions Criticality Noted Date Comments Penicillins 04/23/2008 Pseudoephedrine Rash 05/24/2013 Medications Medication Sig Dispensed Refills Start Date End Date Status vitamin-folic acid 1 mg ( RX) tablet/capsule Take 1 tablet by mouth once daily. 0 03/19/2019 Active Breast Pump PurchaseIndicatio ns:Care and examination of lactating mother Electric breast pump for home use. Gestational age at delivery: 40 weeks. Reason for need: return to work. Length of need: 99 months (lifetime use) 1 Each 05/23/2024 Active Breast Pump PurchaseIndicatio ns:Care and examination of lactating mother Electric breast pump for home use. Gestational age at delivery: 40 weeks. Reason for need: return to work. Length of need: 99 months (lifetime use) 1 Each 05/10/2024 05/23/2024 Discontinued (Reorder (E-cancel not sent)) Active Problems Problem Noted Date Diagnosed Date Iron deficiency anemia 04/20/2024 Elderly multigravida in third trimester 02/13/20 24 History of delivery, currently in third trimester 02/13/2024 Marginal insertion of umbili brenda cord affecting management of mother in third trimester 02/13/2024 Overview: Screening non MFM scan 03/01/24 NDICATION: History of labor TECHNIQUE: Limited transabdominal two-dimensional delacruz-scale ultrasound examination. COMPARISON: 02/13/2024, 02/02/2024, 01/19/2024, 01/09/2024 and 11/25/2023 FINDINGS: There is a living fetus in cephalic lie with gestational age of 22 weeks 2 days and EDC of 07/03/2024. The heart rate is measured at 144 beats per minute and the rhythm appears regular. The amniotic fluid volume is within normal limits with single deepest pocket of 4.2 cm. The placenta is anterior and superior to the cervical os. There is no evidence of previa. The inferior edge of the placenta is 2.9 cm from the internal os. Marginal cord insertion at the inferior end of the placenta is demonstrated. The cervical length is normal at 3.9 cm. Cord arterial S/D = 3.5. IMPRESSION: 1. Living fetus in cephalic lie with gestational age of 22 weeks 2 days and EDC of 07/03/2024. 2. Marginal cord insertion at the inferior end of the placenta and inferior placental edge 2.9 cm from the internal os. Dictated by Roberto Orta MD @ 03/02/2024 7:27:15 AM INITIAL LEVEL II SONOGRAM MPP 02/13/24 eferred By: BIANCA MISTRY MD Indications Code 19 weeks gestation of Z3A.19 Advanced maternal age, multigravida 31622 2013 31w4d PTD 2019 molar with D&C 2015 term 01/16 SAB w/ D&C 05/18 ectopic Suspected placental previa with PCP Low Risk NIPT Advanced Maternal Age IMPRESSION: Intrauterine at 19w 6d. presentation is Transverse, head to maternal left. EFW 329 grams, percentile: 55. Growth parameters and estimated weight are appropriate for gestational age. No major structural anomalies identified. No markers for aneuploidy identified. Normal Deepest Vertical Pocket of amniotic fluid: 4.29 cm. Placental location: Anterior, left lateral, low lying. There is a low lying placenta measuring 1.5-1.9cm from the internal os. There is a marginal cord insertion which is at the inferior edge of the placenta. There is no velamentous insertion or vasa previa noted today. The transvaginal cervical length is 4.4 cm. There is no change with transfundal pressure. [facility] High-risk supervision 01/10/2024 Overview: Swapnil Richards : 1990 [facility] ULTRASOUND/TESTING PATIENT Support person name: Chuy ULTRASOUND TYPE: Growth/TVUS REASON FOR VISIT: AMA, low lying placenta, marginal cord insertion NEXT VISIT ALERTS: Final KONG by LMP LMP Date: Patient's last menstrual period was 09/27/2023 (approximate). KONG: 07/03/24 Early US: Date: 11/25/23 GA: 8w2d KONG:07/04/24 PrePregnancy Weight: 133 # 6.4 oz Height: 61.65 BMI: 25 PLANS & FUTURE APPOINTMENTS: ULTRASOUND/GROWTH PLAN: - Through: - Growth: Next TESTING PLAN: - Testing: Through DELIVERY PLAN: - Scheduled delivery: - Preferred delivery location: PRIMARY DIAGNOSIS: 33 y.o. Estimated Date of Delivery: 07/03/24 : Marginal cord insertion MATERNAL Low lying placenta (1.5-1.9 from OS 02/12) AMA 04/2023 ectopic 12/2022 SAB w/ D&C 2015 Term 2019 Molar w/ D&C 2014 31w4d PTD PREVIOUS ULTRASOUNDS: 02/13/24 19w6d EFW 329 grams, percentile: 55. Low lying placenta measuring 1.5- 1.9cm from the internal os. Marginal cord insertion 01/09/24 15w2d EDC 06/30/2024. Anterior placental edge overlies the internal cervical os ECHO: REFERRING PROVIDER/CLINIC: Bianca Mistry MD, [place] Primary provider approves scheduling of recommended ultrasounds/testing: Yes SPECIALISTS/CONSULTS: Include: Specialty MD Clinic Name Phone# [place] and ADDED TO PATIENT CARE TEAM GENETICS: NIPS: Low Risk CARE COORDINATION: PERTINENT LABS: Labs reviewed? Yes Normal? Yes Blood type: O Rh Positive Antibody screen: Negative PERTINENT MEDS: PROCEDURES: IF FGR <10% or EFW <2000 grams: Add FGRPCOM PLAN OF CARE: Original and updated POC 02/13/24 per CB -Return to primary provider for continued care. -No alterations in the delivery plan are necessary. -No medication changes are indicated. -No BPPs or NSTs suggested. -The option of amniocentesis was presented. -Continue cervical length screening through 22-23 weeks' - vaginal progesterone (200mg nightly) should be offered if the cervical length is <25mm. -Recommend follow up growth ultrasound and transvaginal ultrasound at 32 weeks' due to low lying placenta, marginal cord insertion into the inferior edge. Vaginal ultrasound is recommended due to risk of evolving vasa previa with the anatomy of the cord insertion. -The recommended follow up was scheduled with [facility] before the patient left our office today. 11/23/2023 Overview: Estimated Date of Delivery: 07/03/24 Patient's last menstrual period was 09/27/2023 (approximate). GBS- 28wk labs- Last Tdap- 10/06/2020 Last Flu vaccine- 08/31/23 OB Labs: ABORH Date Value Ref Range Status 11/23/2023 O Rh Positive Final ANTIBODY SCREEN Date Value Ref Range Status 11/23/2023 Negative Negative Final TREPONEMA PALLIDUM Date Value Ref Range Status 11/23/2023 Non-Reactive Non-Reactive Final RUBELLA IGG ANTIBODY Date Value Ref Range Status 11/23/2023 6.04 >=1.00 Index Final INTERPRETATION Date Value Ref Range Status 11/23/2023 Positive Final Comment: Presence of detectable IgG antibodies. A positive result generally indicates exposure to the virus or previous vaccination, but is not an indication of active infection or stage of disease. HBSAG Date Value Ref Range Status 11/23/2023 Nonreactive Nonreactive Final HEPATITIS C ANTIBODY Date Value Ref Range Status 11/23/2023 Non-Reactive Non-Reactive Final Comment: Please note, per www.CDC.gov: If a patient is known to be at high risk of HCV infection, or is symptomatic, and the physician's suspicion of HCV infection is high, HCV RNA testing is often employed and is of diagnostic value, even after an initial negative anti-HCV test result. HIV-1/HIV-2 SCREEN Date Value Ref Range Status 11/23/2023 Non-Reactive Non-Reactive Final Comment: HIV-1 p24 and HIV-1/HIV-2 Ab Not Detected. HEMOGLOBIN Date Value Ref Range Status 11/23/2023 10.9 (L) 12.0 - 16.0 g/dL Final PLATELET COUNT Date Value Ref Range Status 11/23/2023 285 140 - 440 thou/cu mm Final CHLAMYDIA PROBE Date Value Ref Range Status 11/23/2023 Negative Final N GONORRHOEAE PROBE Date Value Ref Range Status 11/23/2023 Negative Final Allergies Allergen Reactions Penicillins Sudafed [Pseudoephedrine] Rash OB History Para Term AB Living 7 3 2 1 3 3 SAB IAB Ectopic Multiple Live Births 1 0 1 0 3 # Outcome Date GA Lbr Jorge/2nd Weight Sex Delivery Anes PTL Lv 7 Current 6 Ectopic 05/08/23 FD 5 SAB 01/18/23 9w5d SPONTANEOUS Comments: blighted ovum, D&C 4 Term 12/11/20 40w3d M Vag EPIDURAL N CHERELLE Name: Michael 3 Molar 09/07/19 10w5d 2 Term 02/02/16 41w0d 3.15 kg (6 lb 15 oz) F Vag EPIDURAL N CHERELLE Name: Bel 1 11/22/13 31w4d 1.68 kg (3 lb 11.3 oz) M Vag-Spont EPIDURAL Y CHERELLE Comments: labor Name: DONNY RICHARDS Apgar1: 9 Apgar5: 9 Past Medical History: . Date No Significant Past Medical History Supervision of normal first 05/24/2013 Varicella as a child Past Surgical History: . Laterality Date DILATION AND CURETTAGE 2018 [place] UNLISTED PROCEDURE MIDDLE EAR Tm graft TYMPANOSTOMY as a child Problems (from 11/23/23 to present) No problems associated with this episode. Falguni Way RN ....11/23/2023 2:33 PM Estimated Date of Delivery Comme nts Yes 07/03/2024 Resolved Problems Problem Noted Date Diagnosed Date Resolved Date Low-lying placenta in third trimester 02/13/2024 05/10/2024 Overview: Screening non MFM scan 03/01/24 NDICATION: History of labor TECHNIQUE: Limited transabdominal two-dimensional delacruz-scale ultrasound examination. COMPARISON: 02/13/2024, 02/02/2024, 01/19/2024, 01/09/2024 and 11/25/2023 FINDINGS: There is a living fetus in cephalic lie with gestational age of 22 weeks 2 days and EDC of 07/03/2024. The heart rate is measured at 144 beats per minute and the rhythm appears regular. The amniotic fluid volume is within normal limits with single deepest pocket of 4.2 cm. The placenta is anterior and superior to the cervical os. There is no evidence of previa. The inferior edge of the placenta is 2.9 cm from the internal os. Marginal cord insertion at the inferior end of the placenta is demonstrated. The cervical length is normal at 3.9 cm. Cord arterial S/D = 3.5. IMPRESSION: 1. Living fetus in cephalic lie with gestational age of 22 weeks 2 days and EDC of 07/03/2024. 2. Marginal cord insertion at the inferior end of the placenta and inferior placental edge 2.9 cm from the internal os. Dictated by Roberto Orta MD @ 03/02/2024 7:27:15 AM INITIAL LEVEL II SONOGRAM MPP 02/13/24 eferred By: BIANCA MISTRY MD Indications Code 19 weeks gestation of Z3A.19 Advanced maternal age, multigravida 94893 2013 31w4d PTD 2019 molar with D&C 2015 term 01/16 SAB w/ D&C 05/18 ectopic Suspected placental previa with PCP Low Risk NIPT Advanced Maternal Age IMPRESSION: Intrauterine at 19w 6d. presentation is Transverse, head to maternal left. EFW 329 grams, percentile: 55. Growth parameters and estimated weight are appropriate for gestational age. No major structural anomalies identified. No markers for aneuploidy identified. Normal Deepest Vertical Pocket of amniotic fluid: 4.29 cm. Placental location: Anterior, left lateral, low lying. There is a low lying placenta measuring 1.5-1.9cm from the internal os. There is a marginal cord insertion which is at the inferior edge of the placenta. There is no velamentous insertion or vasa previa noted today. The transvaginal cervical length is 4.4 cm. There is no change with transfundal pressure. 12/31/2022 01/27/2023 Overview: Estimated Date of Delivery: 08/18/23 Patient's last menstrual period was 11/11/2022 (approximate). GBS- Last Tdap- 10/06/20 Last Flu vaccine- 06/17/22 Glucose (GTT) result- Recent Labs 12/30/22 1059 12/30/22 1054 HGB -- 12.1 ABORH -- O Rh Positive RCBANTIBODY -- Negative TREPONEPALLI -- Negative RUBELLAIGG -- 7.98 Positive CHLAMYDIAPRB Negative -- NGONORRPROBE Negative -- Allergies Allergen Reactions ? ? Penicillins ? ? Sudafed [Pseudoephedrine] Rash OB History Para Term AB Living 5 3 2 1 1 3 SAB IAB Ectopic Multiple Live Births 0 0 0 0 3 # Outcome Date GA Lbr Jorge/2nd Weight Sex Delivery Anes PTL Lv 5 Current 4 Term 12/11/20 40w3d M Vag EPIDURAL N CHERELLE Name: Michael 3 Molar 09/07/19 10w5d 2 Term 02/02/16 41w0d 3.15 kg (6 lb 15 oz) F Vag EPIDURAL N CHERELLE Name: Bel 1 11/22/13 31w4d 1.68 kg (3 lb 11.3 oz) M Vag-Spont EPIDURAL Y CHERELLE Comments: labor Name: MADELAINEDONNY Apgar1: 9 Apgar5: 9 Past Medical History: . Date ? ? No Significant Past Medical History ? ? Supervision of normal first 05/24/2013 ? ? Varicella as a child Past Surgical History: . Laterality Date ? ? DILATION AND CURETTAGE 2018 ? ? [place] UNLISTED PROCEDURE MIDDLE EAR Tm graft ? ? TYMPANOSTOMY as a child No data on file. Problems (from 12/29/22 to present) No problems associated with this episode. Michaela Joe RN ....12/31/2022 3:43 PM Encounter for supervision of normal in second trimester 08/13/2020 12/31/2022 06/23/2020 12/31/2022 Overview: Component Latest Ref Rng & Units 11/10/2020 HEMOGLOBIN 12.0 - 16.0 g/dL 10.9 (L) MCV 80 - 100 fL 92 Vaginal/Rectal OB Strep B PCR Negative Estimated Date of Delivery: 12/08/20 Patient's last menstrual period was 03/03/2020. Last Tdap- 10/06/2020 Last Flu vaccine- 06/19/2020 Glucose (GTT) result- Component Latest Ref Rng & Units 09/05/2020 HEMOGLOBIN 12.0 - 16.0 g/dL 9.9 (L) MCV 80 - 100 fL 92 GLUCOSE,GESTATIONAL 65 - 139 mg/dL 92 TREPONEMA PALLIDUM Negative Negative 20 week US: Level 2 US done at [facility] patient was 20 3/7 weeks gestation Allergies Allergen Reactions ? ? Penicillins ? ? Sudafed [Pseudoephedrine] Rash OB History Para Term AB Living 4 2 1 1 1 2 SAB TAB Ectopic Multiple Live Births 0 0 0 0 2 # Outcome Date GA Lbr Jorge/2nd Weight Sex Delivery Anes PTL Lv 4 Current 3 Molar 09/07/19 10w5d 2 Term 02/02/16 41w0d 3.15 kg (6 lb 15 oz) F Vag EPIDURAL N CHERELLE Name: Bel 1 11/22/13 31w4d 1.68 kg (3 lb 11.3 oz) M Vag-Spont EPIDURAL Y CHERELLE Comments: labor Name: DONNY RICHARDS Apgar1: 9 Apgar5: 9 Create lab flowsheet for OB labs- Component Latest Ref Rng & Units 05/26/2020 05/26/2020 05/26/2020 10:37 AM 10:37 AM 10:37 AM HEMOGLOBIN 12.0 - 16.0 g/dL 12.0 MCV 80 - 100 fL 91 ANTIBODY SCREEN Negative Negative SPECIMEN EXPIRATION DATE/TIME 05/29/20 23:59 RUBELLA IGG ANTIBODY Positive 9.29 CHLAMYDIA PROBE N GONORRHOEAE PROBE HIV-1/HIV-2 ANTIBODY Non-Reactive Non-Reactive ABORH O Rh Positive HBSAG Nonreactive Nonreactive TREPONEMA PALLIDUM Negative Negative HEPATITIS C ANTIBODY Non-Reactive Non-Reactive Component Latest Ref Rng & Units 05/26/2020 10:40 AM HEMOGLOBIN 12.0 - 16.0 g/dL MCV 80 - 100 fL ANTIBODY SCREEN Negative SPECIMEN EXPIRATION DATE/TIME RUBELLA IGG ANTIBODY CHLAMYDIA PROBE Negative N GONORRHOEAE PROBE Negative HIV-1/HIV-2 ANTIBODY Non-Reactive ABORH HBSAG Nonreactive TREPONEMA PALLIDUM Negative HEPATITIS C ANTIBODY Non-Reactive Past Medical History: . Date ? ? No Significant Past Medical History ? ? Supervision of normal first 05/24/2013 Past Surgical History: . Laterality Date ? ? [place] UNLISTED PROCEDURE MIDDLE EAR Tm graft ? ? TYMPANOSTOMY as a child No data on file. Problems (from 05/26/20 to present) No problems associated with this episode. Tori Rhoades RN.....06/23/2020 11:33 AM Supervision of other normal 05/26/2020 06/23/2020 09/05/2019 06/23/2020 Overview: Estimated Date of Delivery: 03/30/20 Patient's last menstrual period was 06/24/2019 (approximate). Last Tdap- 11/17/2015 Last Flu vaccine- 08/11/2018 Glucose (GTT) result- too early Allergies Allergen Reactions ? ? Penicillins ? ? Sudafed [Pseudoephedrine] Rash OB History Para Term AB Living 3 1 0 1 0 1 SAB TAB Ectopic Multiple Live Births 0 0 0 0 1 # Outcome Date GA Lbr Jorge/2nd Weight Sex Delivery Anes PTL Lv 3 Current 2 11/22/13 31w4d 1.68 kg (3 lb 11.3 oz) M Vag-Spont EPIDURAL Y CHERELLE Comments: labor Name: MADELAINEDONNY Apgar1: 9 Apgar5: 9 1 Create lab flowsheet for OB labs- Component Latest Ref Rng & Units 08/08/2019 08/08/2019 08/08/2019 9:37 AM 9:37 AM 9:37 AM HEMOGLOBIN 12.0 - 16.0 g/dL 12.2 MCV 80 - 100 fL 91 ANTIBODY SCREEN Negative Negative SPECIMEN EXPIRATION DATE/TIME 08/11/19 23:59 RUBELLA IGG ANTIBODY Positive 10.80 HIV-1/HIV-2 ANTIBODY Non-Reactive Non-Reactive ABORH O Rh Positive HBSAG Nonreactive Nonreactive TREPONEMA PALLIDUM Negative Negative Past Medical History: . Date ? ? No Significant Past Medical History ? ? Supervision of normal first 05/24/2013 Past Surgical History: . Laterality Date ? ? MIDDLE EAR SURGERY Tm graft ? ? TYMPANOSTOMY as a child No data on file. Problems (from 09/04/19 to present) No problems associated with this episode. CAROLYN Charles.....09/05/2019 8:26 AM History of delivery, currently 08/15/2015 02/06/2018 care, subsequent 07/15/2015 02/06/2018 Overview: Flu shot 07/15/2015 Hx delivery at 31w4d, will need progesterone shots starting at 16 weeks. It's a girl! GBS NEGATIVE HEMOGLOBIN (g/dL) Date Value 12/29/2015 11.3* Vaginal delivery 11/22/2013 10/18/2014 labor 11/20/2013 10/18/2014 Abnormal quad screen 08/13/2013 015 Overview: Normal Level II ultrasound Subchorionic hemorrhage 06/08/201309/27 Supervision of normal first 05/24/2013 10/18/2014 Overview: Rubella non-immune Quad screen shows increased risk of NTD, perinatology consult, reassuring, level 2 ultrasound at 20 weeks. TDaP 10/22/2013 Encounters Date Type Department Care Team Description 05/23/2024 9:15 AM CDT OB Encounter [facility] [address] [place] [address] Bianca Mistry MD Care (34w 1d) 05/23/2024 Travel 05/10/2024 11:20 AM CDT OB Encounter [facility] [address] [place] [address] Bianca Mistry MD Care (32w 2d/) 05/10/2024 7:45 AM CDT - 05/10/2024 11:59 PM CDT Hospital Encounter [facility] [address] [address] Sudha Isaacs MD Supervision of high risk in third trimester (Primary Dx); Marginal insertion of umbilical cord affecting management of mother in third trimester; Low-lying placenta in third trimester; Advanced maternal age in multigravida, unspecified trimester; History of delivery, currently ; Low-lying placenta in second trimester; Marginal insertion of umbilical cord affecting management of mother in second trimester 05/10/2024 Travel 05/03/2024 9:15 AM CDT - 05/03/2024 11:59 PM CDT Hospital Encounter [facility] [address] [facility] [place] [address] Bianca Mistry MD Iron deficiency anemia, unspecified iron deficiency anemia type (Primary Dx) 05/03/2024 Travel 04/26/2024 12:00 PM CDT - 04/26/2024 11:59 PM CDT Hospital Encounter [facility] [address] [facility] [place] [address] Iron deficiency anemia, unspecified iron deficiency anemia type (Primary Dx) 04/26/2024 Hospital/[facility] Telephone Encounter [facility] [address] [facility] [place] [address] Rasheeda Chavarria RN Pre Procedure (PVP) 04/26/2024 Travel 04/24/2024 Telephone [facility] [address] [facility] [place] [address] Adriane Lazcano, INSTRUMENTATION CHEMIST Appointment 04/24/2024 Phone Office Visit [facility] [address] [facility] [place] [address] Erica Dias MD Error-please disregard (Encounter opened in error. ) 04/23/2024 Nurse Triage [facility] [address] [facility] [place] [address] Bianca Mistry MD Fatigue 04/20/2024 Telephone [facility] [address] [facility] [place] [address] Bianca Mistry MD Infusion Therapy 04/19/2024 3:15 PM CDT OB Encounter [facility] [address] [facility] [place] [address] Bianca Mistry MD Care (29 weeks and 2 days/) 04/19/2024 Travel 03/08/2024 4:05 PM CDT OB Encounter [facility] [address] [place] [address] Bianca Mistry MD Care (23w 2d/) 03/08/2024 Travel 03/01/2024 7:29 AM CDT - 03/01/2024 11:59 PM CDT Hospital Encounter [facility] [address] [place], [place] [address] History of delivery, currently in first trimester 03/01/2024 Travel from Last 3 Months Immunizations Name Administration Dates Next Due AMB Influenza, IIV4 PF (=>6 mos Flulaval,Fluzone Fluarix)(Flu Clinic Only) 08/11/2018 COVID-19 Vaccine Spikevax (M oderna 50mcg/0.5mL) 12YO+ [id number] Formula PF 09/12/2023 COVID-19 vaccine (Moderna 100mcg/0.5mL) PF, MDV 01/21/2021,12/24/2020 COVID-19 vaccine (Pfizer-Bio NTech 30mcg/0.3mL) 12YO+ BIVALENT PF, MDV 06/17/2022 DTP 12/15/1992, 9,1988,06/23,1988 HIB HbOC (HibTITER) 04/18/1990 Hepatitis B (Peds) 01/13/2000,09/09/1999, 999 Human Papilloma Virus Vaccine 04/12/2011, 009,07/26/2008 Influenza, IIV3 (Age >=3 years) 07/10/2013,07/26 Influenza, IIV4 06/17/2022, 0,07/15/2015,07/05 Influenza, IIV4 (=>6mos) MDV 08/31/2023,07/12/20 21 MMR 11/23/2013,01/13/2000,09/09/1989 Meningococcal Vaccine (Menactra) 03/11/2006 Oral Polio Vaccine 12/15/1992, 9,1988,04/07 Td (Age >=7 Years) 01/13/2000 Tdap 04/19/2024,,11/17/2015,10/22,04/12/2011 Family History Medical History Relation Name Comments Hyperlipidemia Father Hypertension Father Other Father gene carrier fo r emphysema Other Maternal Grandmother genetic emphysema Thyroid Disease Son Cancer-breast No Family History Cancer-ovarian No Family History Diabetes No Family History Relation Name Status Comments Father Alive Maternal Grandmother Mother Alive Son Social History Tobacco Use Types Packs/Day Years Used Date Smoking Tobacco: Never Smokeless Tobacco: Never Tobacco Cessation:Counseling Given: Yes Alcohol Use Standard Drinks/Week Comments Not Currently 0 (1 standard drink = 0.6 oz pur e alcohol) 1-2 times weekly 1-2 drinks PHQ-2 Answer Date Recorded PHQ-2 TOTAL SCORE 0 12/14/2023 Social Connections Answer Date Recorded Frequency of Communication with Friends and Fami ly 0 05/10/2024 Financial Resource Strain Answer Date R ecorded Difficulty of Paying Living Expenses 3 05/10/2024 Difficulty of Paying Living Expenses Not on file 05/10/2024 Food Insecurity Answer Date Recorded Worried About Running Out of Food in the Last Ye ar 1 05/10/2024 Transportation Needs Answer Date Record ed Lack of Transportation (Medical) 1 05/10/2024 Housing Stability Answer Date Recorded Unable to Pay for Housing in the Last Year 1 05/10/2024 Estimated Date of Delivery Comme nts Yes 07/03/2024 Sex and Gender Information Value Date Recorded Sex Assigned at Not on file Gender Identity Not on file Sexual Orientation Not on file Obstetrics History Para Term AB IAB SAB Ectopic Multiple Livin g Live Births 7 3 2 1 3 1 1 3 3 Date Outcome GA Total Labor Labor/2nd/3rd Weight Sex Type Anes PTL Cherelle A1 A5 Name Clin 2013 31w 4d 1.68 kg (3 lb 11.3 oz) M Vag-Sp ont Epidur al Y Livin g 9 9 PURFE ERST, BB Thors on Delivery Location:[facility] Comments: labor 2015 Term 41w 0d 3.15 kg (6 lb 15 oz) F Vag Epidur al N Livin g Bel Tappe r Delivery Location:[facility] 2018 Molar 10w 5d Comments:D&C 2020 Term 40w 3d 6h 00m M Vag Epidur al N Livin g Michael Andujar r, Carly Cisneros MD Complications:None Delivery Location:Hospital ( [facility]) 2022 SAB 9w5 d SPONTA NEOUS Comments:blighted ovum , D&C 2022 Ectopic Demis e Current Summary Episode Dates Number of Fetuses Estimated Date of Delivery 11/23/2023 - Present (05/26/2024) 07/03/2024 (set by Bianca Landis RN on 11/23/2023 based on Alternate KONG Entry) Dating Summary Based On KONG GA Diff Last Menstrual Period on 09/27/2023 (Approximate ) 07/03/2024 Same Alternate KONG Entry 07/03/2024 Working Vitals Pregravid Weight Height TWG (As of 05/26/2024) Pregrav id BMI 1.566 m (5' 1.65) Date GA Fund Present FHR Mvmt BP Weight Edema Alb Glu Ket Dil/ Eff/Sta 4 8w3d Inpatient data not displayed here. See encounter summary. 4 16w2d Inpatient data not displayed here. See encounter summary. 4 18w2d Inpatient data not displayed here. See encounter summary. 4 19w6d Inpatient data not displayed here. See encounter summary. 4 22w2d Inpatient data not displayed here. See encounter summary. 4 32w2d Inpatient data not displayed here. See encounter summary. Notes Progress Notes - OB Encounte r - 05/23/2024 - GA:34w1d 05/23/2024 - 34w1d - Bianca Mistry MD SUBJECTIVE: Swapnil Richards is a 34 y.o. female at 34+1 weeks. No concerns. See visit comments. OBJECTIVE: see OB vitals flow sheet ASSESSMENT : 34+1 weeks gestation Low lying placenta is now resolved Marginal cord insertion, normal interval growth on follow up US with MFM AMA PLAN: labor signs and symptoms reviewed with patient including pain, cramping, bleeding or leaking fluid. RTC 2 weeks with GBS. Bianca Mistry MD .................... 05/23/2024 9:22 AM Progress Notes - OB Encounte r - 05/10/2024 - GA:32w2d 05/10/2024 - 32w2d - Bianca Mistry MD SUBJECTIVE: Swapnil Richards is a 34 y.o. female at 32+2 weeks. No concerns. Reviewed MPP follow up. Iron infusions helped a lot with restless legs and sleep, but still having palpitations. Palpitations are not daily anymore since iron, but are 3-4 times/week. Will have a pulse ~130-150 for an hour. Will get a minor headache and shortness of breath with these epidoes. No nausea or chest pain or dizziness. See visit comments. OBJECTIVE: see OB vitals flow sheet ASSESSMENT : 32+2 weeks gestation Low lying placenta is now resolved Marginal cord insertion, normal interval growth on follow up US with [facility] AMA PLAN: labor signs and symptoms reviewed with patient including pain, cramping, bleeding or leaking fluid. RTC 2 weeks. Bianca Mistry MD .................... 05/10/2024 11:52 AM Progress Notes - Hospital En counter - 05/10/2024 - GA:32w2d 05/10/2024 - 32w2d - Ralph Brewer MD [facility]/ US OB FOLLOW UP PER FETUS (62933.0) +Transvaginal ultrasound (TVUS) 29425.0 32w2d Estimated Date of Delivery: 07/03/24 34 y.o. [id number] Your patient had an ultrasound with [facility] on 05/10/24 . The report is ready and can be found in the [facility]. The Impression from the report is below. Problem list updated Patient Active Problem List Diagnosis Code Z34.90 [facility] High-risk supervision O09.90 Elderly multigravida in third trimester O09.523 History of delivery, currently in third trimester O09.893 Marginal insertion of umbilical cord affecting management of mother in third trimester O43.193 Iron deficiency anemia D50.9 US OB FOLLOW UP PER [facility]ETUS (32813.0) +Transvaginal ultrasound (TVUS) 44960.0 Referred By: BIANCA MISTRY MD Indications Code 32 weeks gestation of Z3A.32 Advanced maternal age, multigravida 10961 2013 31w4d PTD 2019 molar with D&C 2015 term 01/16 SAB w/ D&C 05/18 ectopic Suspected placental previa with PCP Low Risk NIPT Low lying placenta, Marginal CI on L2: Low lying placenta RESOLVED MPP f/u scan 05/10/24 05/10/24 MPP f/u scan TVUS: EFW 1969 grams (45%/AC 47%) Normal interval growth Normal appearing ANTERIOR placenta (NOT LOW LYING) Normal DVP IMPRESSIONS: Intrauterine at 32w 2d. presentation is Cephalic. EFW 1969 grams, percentile: 45. Deepest Vertical Pocket of amniotic fluid: 5.64 cm. No major anomalies identified on limited survey. Appropriate symmetric growth. Placental location: Anterior. There is no evidence of placenta previa: prior Low lying placenta RESOLVED The transabdominal cervical length is not seen 3.9 cm. RECOMMENDATIONS: -Return to primary OB provider for continued care. -No medication changes are indicated. -No surveillance suggested. -Present findings are reassuring. No further ultrasounds are necessary for the present indication. COMMENT: The patient was seen by the Perinatologist today. The previous ultrasound and the records were reviewed. The results of today's ultrasound were communicated to the patient. New government regulations related to the [employer] Cures act require that this note be released to the patient immediately, sometimes before the referring provider has been contacted. A portion of the information was presented verbally to the patient. The remainder is submitted as background for the referring provider, to be discussed as needed. Medical Decision Making: Moderate Level 23109 Moderate number/complexity of problems including an undiagnosed new problem with uncertain prognosis or an acute illness with systemic symptoms for mother or fetus, etc. Moderate amount and/or complexity of Data reviewed and analyzed including review of prior ultrasound, ordering another ultrasound, and review of prior external notes, etc. Moderate risk of morbidity or mortality related to prescription drug treatment, elective major surgery, or social determinants of health, etc. Services Provided: Procedures Code FOLLOW UP GROWTH 60842.0 TRANSVAGINAL ULTRASOUND 02226.0 Thank you for allowing us to participate in her care Ralph Brewer MD Maternal /Critical Care Medicine [facility] [phone] office [phone] Cell/text Progress Notes - OB Encounte r - 04/19/2024 - GA:29w2d 04/19/2024 - - Bianca Mistry MD SUBJECTIVE: Swapnil Richards is a 34 y.o. female at 29+2 weeks. Has been getting heart racing. Will randomly have a pulse of 140. Makes her feel a little short of breath. She also is tired, but is not able to sleep well. Sometimes that is related to the heart palpitations. See visit comments. OBJECTIVE: see OB vitals flow sheet ASSESSMENT : 29+2 weeks gestation AMA Marginal cord insert PLAN: labor signs and symptoms reviewed with patient including pain, cramping, bleeding or leaking fluid. Low lying placenta now resolved. Marginal cord insert, follow up ultrasound with [facility] 05/10 Discussed her palpitations, will plan to check hemoglobin today as planned, if low, could be related to anemia and we can try an iron infusion. If hemoglobin is stable, recommend holter monitor to try to capture episodes. TDaP today. Diabetes, hemoglobin and syphilis screening today RTC 3 weeks. Bianca Mistry MD .................... 04/19/2024 3:33 PM Progress Notes - OB Encounte r - 03/08/2024 - GA:23w2d 03/08/2024 - - Bianca Mistry MD SUBJECTIVE: Swapnil Richards is a 34 y.o. female at 23+2 weeks. Has been having hip pain, working with chiropractor. No concerns. See visit comments. OBJECTIVE: see OB vitals flow sheet ASSESSMENT : 23+2 weeks gestation AMA Hx delivery, cervical length remained normal Low lying placenta, resolved Marginal cord insertion, follow up ultrasound with [facility] 05/10/24 PLAN: labor signs and symptoms reviewed with patient including pain, cramping, bleeding or leaking fluid. RTC 4 weeks with diabetes, hemoglobin and syphilis screening. Bianca Mistry MD .................... 03/08/2024 4:15 PM Progress Notes - Hospital En counter - 02/13/2024 - GA:19w6d 02/13/2024 - w - Sudha Isaacs MD [facility] Ultrasound 02/13/24. Your patient had an ultrasound with [facility] on 02/13/24 The report is ready and can be found in the [facility]. The Impression from the report is below. Thank you for the opportunity to participate in the care of this [place] patient. Sudha Isaacs MD .................... 02/13/2024 8:32 AM Referred By: BIANCA MISTRY MD Indications Code 19 weeks gestation of Z3A.19 Advanced maternal age, multigravida 56728 2013 31w4d PTD 2019 molar with D&C 2015 term 01/16 SAB w/ D&C 05/18 ectopic Suspected placental previa with PCP Low Risk NIPT Advanced Maternal Age IMPRESSION: Intrauterine at 19w 6d. presentation is Transverse, head to maternal left. EFW 329 grams, percentile: 55. Growth parameters and estimated weight are appropriate for gestational age. No major structural anomalies identified. No markers for aneuploidy identified. Normal Deepest Vertical Pocket of amniotic fluid: 4.29 cm. Placental location: Anterior, left lateral, low lying. There is a low lying placenta measuring 1.5-1.9cm from the internal os. There is a marginal cord insertion which is at the inferior edge of the placenta. There is no velamentous insertion or vasa previa noted today. The transvaginal cervical length is 4.4 cm. There is no change with transfundal pressure. RECOMMENDATIONS: -Return to primary provider for continued care. -No alterations in the delivery plan are necessary. -No medication changes are indicated. -No BPPs or NSTs suggested. -The option of amniocentesis was presented. -Continue cervical length screening through 22-23 weeks' - vaginal progesterone (200mg nightly) should be offered if the cervical length is <25mm. -Recommend follow up growth ultrasound and transvaginal ultrasound at 32 weeks' due to low lying placenta, marginal cord insertion into the inferior edge. Vaginal ultrasound is recommended due to risk of evolving vasa previa with the anatomy of the cord insertion. -The recommended follow up was scheduled with [facility] before the patient left our office today. COMMENT: The patient was seen by the Perinatologist today. The previous ultrasound and the records were reviewed. The results of today's ultrasound were communicated to the patient. Alternatives available for detecting anomalies, aneuploidy and predicting developmental outcome for this were discussed as indicated. The risks, benefits and limitations of maternal serum screening, ultrasound, and genetic amniocentesis were reviewed with the patient. At the conclusion of our visit the patient declined any further genetic screening or testing, being satisfied by the risk reduction of today's normal ultrasound study. Counseling included that the finding of a low-lying placenta in the second trimester (placental edge <20mm from cervical os) was seen today. The majority of low- lying placentas diagnosed in the second trimester will resolve. Those that do not may increase the risk of antepartum/intrapartum vaginal bleeding. We recommend a follow up ultrasound at 32 weeks to evaluate placental location. Vaginal ultrasound with color Doppler is recommended since low lying placenta, even if resolved, is a risk factor for vasa previa. Pelvic rest is not needed for low lying placenta >1 cm from the internal os, which Swapnil asked about today. Marginal cord insertion is seen today. MCI has not been consistently associated with adverse outcomes, though conservatively, a growth ultrasound in the 3rd trimester is suggested. Given the location of the MCI in this case, at the inferior edge of the low lying placenta, there is increased risk of subsequent vasa previa with remodeling/resolution of the low lying placenta and this should be followed up with transvaginal ultrasound at 32 weeks. History of is noted. Swapnil previously used intramuscular progesterone in her most recent 2 pregnancies with term deliveries. She is not on vaginal progesterone in the current and has been monitoring cervical lengths transabdominally. We reviewed transvaginal versus transabdominal cervical length screening - if the TA cervical length is <3.4cm, transvaginal imaging is recommended to better measure the cervix, as this is the preferred modality by [facility]. We reviewed the duration of cervical length screening, which we typically stop at 22-23 weeks' based on the timing of potential cerclage or vaginal progesterone initiation, which is not offered after 23w6d. All questions answered. New government regulations related to the Cures act require that this note be released to the patient immediately, sometimes before the referring provider has been contacted. A portion of the information was presented verbally to the patient. The remainder is submitted as background for the referring provider, to be discussed as needed. Medical Decision Making: Moderate Level 96096 Multiple Diagnoses including with AMA, low lying placenta, marginal CI, hx Moderate Data including review of prior ultrasound and review of prior external notes, ordering additional ultrasound Low risk of mortality to the fetus from amniocentesis which was considered and declined. Services Provided: Procedures Code DETAIL ANATOMY 54124.0 TRANSVAGINAL ULTRASOUND 04944.0 Progress Notes - OB Encounte r - 02/06/2024 - GA:18w6d 02/06/2024 - 18w6d - Bianca Mistry MD SUBJECTIVE: Swapnil Richards is a 33 y.o. female at 18+6 weeks. Heart rate is randomly high, will jump from 70 to 120. Notices this typically in the morning, worse if dehydrated. No concerns. See visit comments. OBJECTIVE: see OB vitals flow sheet ASSESSMENT : 18+6 weeks gestation AMA Hx delivery, serial cervical length ultrasounds so far reassuring Low lying placenta, improved from partial previa. PLAN: labor signs and symptoms reviewed with patient including pain, cramping, bleeding or leaking fluid. Level 2 ultrasound next week. Patient has a history of POTS, discussed working on hydration and sodium intake to see if symptoms improve. Also discussed signs/symptoms to watch for which might indicate an arrhythmia. RTC 4 weeks. Bianca Mistry MD .................... 02/06/2024 7:35 AM Progress Notes - OB Encounte r - 01/09/2024 - GA:14w6d 01/09/2024 - d - Bianca Mistry MD SUBJECTIVE: Swapnil Richards is a 33 y.o. female at 14+6 weeks. She called in because of an episode of vaginal bleeding yesterday. She was getting out of the car and felt like she urinated, was bright red blood. Was recommended to go to ER, but bleeding stopped so elected to come in to clinic today. PReliminary ultrasound showed partial previa, awaiting radiology read. Cervix 4 cm No other concerns. See visit comments. OBJECTIVE: see OB vitals flow sheet ASSESSMENT : 14+6 weeks gestation Partial previa AMA History of delivery, getting serial cervical length US PLAN: Warning signs and symptoms reviewed with patient including pain, cramping, bleeding or leaking fluid. Discussed pelvic rest as long as previa remains. Continue cervical length US, will check placental location at those US visits as well. NIPT done today. Level 2 ultrasound ordered. RTC 4 weeks. Bianca Mistry MD .................... 01/09/2024 12:16 PM Progress Notes - OB Encounte r - 12/14/2023 - GA:11w1d 12/14/2023 - 11w1d - Bianca Mistry MD FIRST OB VISIT HPI: Swapnil Richards is a 33 y.o. female at 11w1d with jaffe intrauterine here today for a initial OB exam. Estimated due date is Estimated Date of Delivery: 07/03/24 based on LMP and confirmed with first trimester ultrasound. Nausea/Vomiting: yes Breast tenderness: yes Fatigue: yes Bleeding: no Taking vitamins: yes Options of sequential screen, cell-free DNA testing, amniocentesis were discussed. Patient is not sure if she is interested in pursuing testing. She had a false positive quad screen with her first and found that very stressful. AMA: yes Previous : no OB History Para Term AB Living 7 3 2 1 3 3 SAB IAB Ectopic Multiple Live Births 1 1 3 # Outcome Date GA Lbr Jorge/2nd Weight Sex Delivery Anes PTL Lv 7 Current 6 Ectopic 05/08/23 FD 5 SAB 01/18/23 9w5d SPONTANEOUS Comments: blighted ovum, D&C 4 Term 12/11/20 40w3d M Vag EPIDURAL N CHERELLE 3 Molar 09/07/19 10w5d 2 Term 02/02/16 41w0d 3.15 kg (6 lb 15 oz) F Vag EPIDURAL N CHERELLE 1 11/22/13 31w4d 1.68 kg (3 lb 11.3 oz) M Vag-Spont EPIDURAL Y CHERELLE Comments: labor Past Medical History: . Date No Significant Past Medical History Supervision of normal first 05/24/2013 Varicella as a child Past Surgical History: . Laterality Date DILATION AND CURETTAGE 2018 [place] UNLISTED PROCEDURE MIDDLE EAR Tm graft TYMPANOSTOMY as a child Family History Problem Relation Age of Onset Hyperlipidemia Father Hypertension Father Other Father gene carrier for emphysema Thyroid Disease Son Other Maternal Grandmother genetic emphysema Cancer-ovarian No Family History Cancer-breast No Family History Diabetes No Family History Social History Tobacco Use Smoking status: Never Smokeless tobacco: Never Substance Use Topics Alcohol use: Not Currently Comment: 1-2 times weekly 1-2 drinks Current Outpatient Medications Medication Sig vitamin-folic acid 1 mg ( RX) tablet/capsule Take 1 tablet by mouth once daily. No current facility-administered medications for this visit. Medications have been reviewed by me and are current to the best of my knowledge and ability. ALLERGIES Penicillins and Sudafed [pseudoephedrine] MENTAL HEALTH HISTORY History of psychiatric diagnosis: None Current mental health provider: not applicable Currently taking any psychiatric medications? Not Applicable INFECTION HISTORY Current Drug Use: none Relevant infection history from OB Questionnaire: none REVIEW OF SYSTEMS Comprehensive ROS complete and negative other than noted in HPI and on OB Questionnaire. PHYSICAL EXAM BP 115/79 (Cuff Site: Left Arm, Position: Sitting, Cuff Size: Adult Regular) Pulse 78 Wt 60.8 kg (134 lb) LMP 09/27/2023 (Approximate) SpO2 100% BMI 24.78 kg/m?? General Appearance: Alert, appropriate appearance for age. No acute distress. HEENT Exam: Grossly normal. Neck/Thyroid Exam: Supple, no masses, nodes or enlargement. Lungs: Clear to auscultation bilaterally. Breast Exam: Not indicated. Cardiovascular Exam: Regular rate and rhythm. S1, S2, no murmur. Abd: Soft, non-tender, no masses or organomegaly. Skin: no rashes or lesions. Lymphatics: no nodes palpable. Psychiatric Exam: Alert and oriented x 3, appropriate affect. Pelvic Exam: not indicated ASSESSMENT/PLAN 33 y.o. at 11w1d with jaffe intrauterine . ICD-10-CM 1. Encounter for supervision of other normal in first trimester Z34.81 GLUCOSE, RANDOM HEMOGLOBIN A1C SCREENING 2. AMA (advanced maternal age) multigravida 35+, first trimester O09.521 3. History of delivery, currently in first trimester O09.891 Satisfactory exam. Demonstrates appropriate and health-seeking behaviors toward her . Verbalizes good understanding of care schedule and the importance of coming to each visit as scheduled. Start/continue vitamins. Reviewed labs. She was encouraged to call the office with any questions or concerns. Will do an eConsult with [facility] regarding management and recommendations for cervical length and/or vaginal progesterone. Discussed level 2 ultrasound for anatomy scan given AMA. She and her will discuss NIPT testing. Recent UA with 100 glucose, she has noted increased urination, so random glucose checked today as well as screening A1C. No history of gestational diabetes mellitus. Body mass index is 24.78 kg/m??. Diet and expected weight gain discussed with patient. DEPRESSION SCREEN PHQ Score and Severity Date of PHQ exam: 12/14/23 PHQ-2 TOTAL SCORE: 0 Intervention: Not Depressed Bianca Mistry MD Progress Notes - OB Encounte r - 11/23/2023 - GA:8w1d 11/23/2023 - 8w1d - Bianca Landis RN SUBJECTIVE: Swapnil Richards is a 33 y.o. female, , who presents for confirmation and ob education. Patient presents to the clinic alone. Had positive test at home. This was Planned, Desired. Patient was not on contraception. 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 MENSTRUAL HISTORY: Patient's last menstrual period was 09/27/2023 (approximate).: Cycle Regularity: regular, every 28-30 days Past Medical History: . Date No Significant Past Medical History Supervision of normal first 05/24/2013 Varicella as a child OB History Para Term AB Living 7 3 2 1 3 3 SAB IAB Ectopic Multiple Live Births 1 1 3 # Outcome Date GA Lbr Jorge/2nd Weight Sex Delivery Anes PTL Lv 7 Current 6 Ectopic 05/08/23 FD 5 SAB 01/18/23 9w5d SPONTANEOUS Comments: blighted ovum, D&C 4 Term 12/11/20 40w3d M Vag EPIDURAL N CHERELLE 3 Molar 09/07/19 10w5d 2 Term 02/02/16 41w0d 3.15 kg (6 lb 15 oz) F Vag EPIDURAL N CHERELLE 1 11/22/13 31w4d 1.68 kg (3 lb 11.3 oz) M Vag-Spont EPIDURAL Y CHERELLE Comments: labor 5P'S SUBSTANCE ABUSE SCREEN FOR ALCOHOL, DRUGS AND TOBACCO: Did any of your parents have a problem with using alcohol or drugs? No Do any of your friends (peers) have problems with drug or alcohol use? No Does your partner have a problem with drug or alcohol use? No Before you knew you were , how often did you drink beer, wine, wine coolers or liquor or use any kind of drug? Rarely In the past month, how often did you drink beer, wine, wine coolers or liquor or use any kind of drug? Rarely How much did you smoke, vape or use tobacco or nicotine in any form before you knew you were ? Don't Smoke, Vape or use Tobacco Genetic Screening Genetic Screening/Teratology Counseling- Includes patient, baby's father, or anyone in either family with: Patient's age 35 years or older as of estimated date of delivery: Yes Thalassemia (Uzbek, Upper Sorbian, Mediterranean, or background): MCV less than 80: No Neural tube defect (Meningomyelocele, Spina bifida, or Anencephaly): No Congenital heart defect: No Down syndrome: No Sherman-Sachs (Ashkenazi Yazidi, Cajun, Zambian Lao): No Bill disease (Ashkenazi Yazidi): No Familial dysautonomia (Ashkenazi Yazidi): No Sickle cell disease or trait (): No Hemophilia or other blood disorders: No Muscular dystrophy: No Cystic fibrosis: No Kris's chorea: No Intellectual disability and/or autism: No Other inherited genetic or chromosomal disorder: No Maternal metabolic disorder (eg. Type 1 diabetes, PKU): No Patient or baby's father had child with defects not listed above: No Recurrent loss, or a stillbirth: Yes Medications (including supplements, vitamins, herbs, or OTC drugs)/illicit/recreational drugs/alcohol since last menstrual period: Yes If yes, agent(s) and strength/dosage: gummy CURRENT MEDICATIONS: Current Outpatient Medications Medication Sig vitamin-folic acid 1 mg ( RX) tablet/capsule Take 1 tablet by mouth once daily. No current facility-administered medications for this visit. Medications have been reviewed by me and are current to the best of my knowledge and ability. ALLERGIES: Penicillins and Sudafed [pseudoephedrine] OBJECTIVE: Ht 1.566 m (5' 1.65) Wt 60.5 kg (133 lb 6.4 oz) LMP 09/27/2023 (Approximate) BMI 24.67 kg/m?? ,URINE (no units) Date Value 05/08/2023 Positive (Positive) ASSESSMENT/PLAN: ICD-10-CM 1. Encounter for supervision of other normal in first trimester Z34.81 EDUCATION/PATIENT INSTRUCTIONS - Advised patient to start/continue vitamin. - Discussed risk of using alcohol, tobacco, other drugs in . - Discussed healthy lifestyle in . - Provided copy of [facility]nings book and book inserts, discussed [id number] medications, and follow up. - Encouraged patient to call clinic at [phone] with any vaginal bleeding, fluid leaking from vagina, severe abdominal pain, nausea with severe vomiting, fever higher than 100.4F, painful urination, headache not relieved by Tylenol, or other concerns - labs completed with today's visit. - Patient informed to schedule 1st trimester dating ultrasound between 7-10 weeks. - Initial OB appointment with FP/OB scheduled. PHQ-9, and COVID-19 vaccine discussion to be completed at this visit. Future Appointments Date Time Provider Department Center 12/14/2023 4:05 PM Bianca Mistry MD [facility] Bianca Landis RN .................... 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 Plan of Treatment Upcoming Encounters Date Type Department Care Team (Late st Contact Info) Description 06/04/2024 9:05 AM CDT OB Encounter [facility] [address] [place] [address] Bianca Mistry MD [address] [place] [address] 06/11/2024 8:40 AM CDT OB Encounter [facility] [address] [place] [address] Bianca Mistry MD [address] [place] [address] 06/18/2024 8:40 AM CDT OB Encounter [facility] [address] [facility] [address] Bianca Mistry MD [address] [facility] [address] Health Maintenance Due Date Last Done Comments Pap test for age 21-65 03/19/2024 9, 03/19/2019, 03/22/2016, Additional history exists Influenza for age 9-49 05/27/2024 , 06/17/2022, 07/12/2021, Additional history exists BMI (ht and wt on same day) for age 18+ 11/23/2024 11/23/2023, 09/12/2023, 05/18/2023, Additional history exists Depression screening for age 12+ 12/13/2024 12/14/2023, 01/29/2021, 09/04/2019, Additional history exists Tetanus booster 04/19/2034 04/19/2024, 09/26, 11/17/2015, Additional history exists COVID-19 vaccine series Completed 09/12/20, 06/17/2022, 08/17/2021, Additional history exists HIV for age 15-65 Completed 11/23/2023, , 05/26/2020, Additional history exists Hepatitis C screening for age 18-79 Completed 11/23/2023, 12/30/2022, 05/26/2020, Additional history exists Tdap Completed 04/19/2024, 09/26, 11/17/2015, Additional history exists Pneumococcal series for age 6-64 Aged Out No longer eligible based on patient's age to complete this topic Procedures Procedure Name Priority Date/Time Associated Diagnosis Comments US OB FOLLOW UP ANY TRI SINGLE TA Routine 05/10/2024 9:05 AM CDT Advanced maternal age in multigravida, unspecified trimester History of delivery, currently Low-lying placenta in second trimester Marginal insertion of umbilical cord affecting management of mother in second trimester HEMOGLOBIN Routine 04/19/2024 4:28 PM CDT Encounter for supervision of other normal in second trimester TREPONEMA PALLIDUM Routine 04/19/2024 4: 28 PM CDT Encounter for supervision of other normal in second trimester GLUCOSE,GESTATIONAL Routine 04/19/2024 4 :28 PM CDT Encounter for supervision of other normal in second trimester US OB LIMITED ANY TRI TA Routine 03/01/2024 8:05 AM CDT History of delivery, currently in first trimester ANTI HIV 1/2 Routine 11/23/2023 2:33 PM SHEET METAL INSTALLER Encounter for supervision of other normal in first trimester ANTI HCV Routine 11/23/2023 2:33 PM SHEET METAL INSTALLER Encounter for supervision of other normal in first trimester FLAGMAN THIN PREP PAP SCREEN IMAGED Routine 03/19/2019 4:20 PM CDT Cervical cancer screening from Last 3 Months or Most Recently Relevant to Health Maintenance Results * Growth Follow Up Any Trimester (CPT 96474) If BPP w/NST needed use Testing section for order (05/10/2024 9:05 AM CDT) Anatomical Region Laterality Modality , 2or 3 TRIMESTER Ultrasound 05/10/2024 7:46 AM CDT Narrative 05/10/2024 9:18 AM CDT Referred By: BIANCA ??FEDE ?? Indications Code 32 weeks gestation of Z3A.32 Advanced maternal age, multigravida 31142 2013 31w4d PTD 2019 molar with D&C 2015 term 01/16 SAB w/ D&C 05/18 ectopic Suspected placental previa with PCP Low Risk NIPT Low lying placenta, Marginal CI on L2: ??Low lying placenta RESOLVED MPP f/u scan 05/10/24 05/10/24 MPP f/u scan TVUS: ??EFW 1969 grams (45%/AC 47%) Normal interval growth Normal appearing ANTERIOR placenta (NOT LOW LYING) Normal DVP IMPRESSIONS: Intrauterine at 32w 2d. presentation is Cephalic. EFW 1969 grams, percentile: 45. Deepest Vertical Pocket of amniotic fluid: 5.64 ??cm. ? No major anomalies identified on limited survey. Appropriate symmetric growth. Placental location: Anterior. There is no evidence of placenta previa: ??prior Low lying placenta RESOLVED The transabdominal cervical length is not seen 3.9 cm. ?? RECOMMENDATIONS: -Return to primary OB provider for continued care. -No medication changes are indicated. -No surveillance suggested. ?? -Present findings are reassuring. No further ultrasounds are necessary for the present indication. COMMENT: The patient was seen by the Perinatologist today. ??The previous ultrasound and the records were reviewed. ??The results of today's ultrasound were communicated to the patient. New government regulations related to the Cures act require that this note be released to the patient immediately, sometimes before the referring provider has been contacted. ??A portion of the information was presented verbally to the patient. ??The remainder is submitted as background for the referring provider, to be discussed as needed. Medical Decision Making: Moderate Level 40308 ?Moderate number/complexity of problems including an undiagnosed new problem with uncertain prognosis or an acute illness with systemic symptoms for mother or fetus, etc. ?Moderate amount and/or complexity of Data reviewed and analyzed including review of prior ultrasound, ordering another ultrasound, and review of prior external notes, etc. ?Moderate risk of morbidity or mortality related to prescription drug treatment, elective major surgery, or social determinants of health, etc. Services Provided: Procedures Code FOLLOW UP GROWTH 00272.0 TRANSVAGINAL ULTRASOUND 70234.0 Procedure Note Ralph Brewer MD - 05/10/2024 Referred By: BIANCA MISTRY MD IndicationsCode 32 weeks gestation of [id number].32 Advanced maternal age, [id number] 2013 31w4d PTD 2018 molar with D&C 2015 term 01/16 SAB w/ D&C 05/18 ectopic Suspected placental previa with PCP Low Risk NIPT Low lying placenta, Marginal CI on L2: Low lying placenta RESOLVED MPPf/u scan 05/10/24 05/10/24 MPP f/u scan TVUS: EFW 1969 grams (45%/AC 47%) Normal intervalgrowth Normal appearing ANTERIOR placenta (NOT LOW LYING) Normal DVP IMPRESSIONS: Intrauterine at 32w 2d. presentation is Cephalic. EFW 1969 grams, percentile: 45. Deepest Vertical Pocket of amniotic fluid: 5.64 cm. No major anomalies identified on limited survey. Appropriate symmetric growth. Placental location: Anterior. There is no evidence of placenta previa: prior Low lying placentaRESOLVED The transabdominal cervical length is not seen 3.9 cm. RECOMMENDATIONS: -Return to primary OB provider for continued care. -No medication changes are indicated. -No surveillance suggested. -Present findings are reassuring. No further ultrasounds are necessary forthe present indication. COMMENT: The patient was seen by the Perinatologist today. The previous ultrasoundand the records were reviewed. The results of today's ultrasound werecommunicated to the patient. New government regulations related to the Cures act requirethat this note be released to the patient immediately, sometimes before the referringprovider has been contacted. A portion of the information was presented verbally to thepatient. The remainder is submitted as background for the referring provider, to be discussed asneeded. Medical Decision Making: Moderate Level 65996 Moderate number/complexity of problems including an undiagnosed newproblem with uncertain prognosis or an acute illness with systemic symptoms for mother or fetus,etc. Moderate amount and/or complexity of Data reviewed and analyzedincluding review of prior ultrasound, ordering another ultrasound, and review of prior externalnotes, etc. Moderate risk of morbidity or mortality related to prescription drugtreatment, elective major surgery, or social determinants of health, etc. Services Provided: ProceduresCode FOLLOW UP PLNALH06229.0 TRANSVAGINAL [id number] Sudha Isaacs MD [place] * TREPONEMA PALLIDUM (04/19/2024 4:28 PM CDT) TREPONEMA PALLIDUM Non-Reacti ve Non-Reacti ve 04/20/2024 2:21 PM CDT [facility] Blood BLOOD SPECIMEN / Unknown Venipuncture / Unknown 04/19/2024 4:28 PM CDT 04/19/2024 4:32 PM CDT Bianca Mistry MD SEND OUTS [facility] [address] [place] [id number], [place] * (ABNORMAL) HEMOGLOBIN (04/19/2024 4:28 PM CDT) HEMOGLOBIN 9.7(L) 12.0 - 16.0 g/dL 04/19/2024 4:45 PM CDT [facility] MCV 89 80 - 100 fL 04/19/2024 4:45 PM CDT [facility] Blood BLOOD SPECIMEN / Unknown Venipuncture / Unknown 04/19/2024 4:28 PM CDT 04/19/2024 4:32 PM CDT Bianca Mistry MD HEMATOLOGY [facility] [address] [place] [address], [place] [phone] * GLUCOSE,GESTATIONAL (04/19/2024 4:28 PM CDT) GLUCOSE,GESTAT IONAL 125 70 - 139 mg/dL 04/19/2024 4:45 PM CDT [facility] Blood BLOOD SPECIMEN / Unknown Venipuncture / Unknown 04/19/2024 4:28 PM CDT 04/19/2024 4:32 PM CDT Bianca Mistry MD CHEMISTRY [facility] [address] [place] [address], [place] [phone] * US OB LIMITED ANY TRI TA (03/01/2024 8:05 AM CDT) Anatomical Region Laterality Modality , 2or 3 TRIMESTER, 1ST TRIMESTER Ultrasound 03/02/2024 7:27 AM CDT Impressions 03/02/2024 7:27 AM CDT 1. Living fetus in cephalic lie with gestational age of 22 weeks 2 days and EDC of 07/03/2024. 2. Marginal cord insertion at the inferior end of the placenta and inferior placental edge 2.9 cm from the internal os. Dictated by Roberto Orta MD @ 03/02/2024 7:27:15 AM (Electronically Signed) Narrative 03/02/2024 7:27 AM CDT For Patients: ??As a result of the Century Cures Act, medical imaging exams and procedure reports are released immediately into your electronic medical record. ??You may view this report before your referring provider. ??If you have questions, please contact your health care provider. INDICATION: History of labor TECHNIQUE: Limited transabdominal two-dimensional delacruz-scale ultrasound examination. COMPARISON: 02/13/2024, 02/02/2024, 01/19/2024, 01/09/2024 and 11/25/2023 FINDINGS: There is a living fetus in cephalic lie with gestational age of 22 weeks 2 days and EDC of 07/03/2024. The heart rate is measured at 144 beats per minute and the rhythm appears regular. The amniotic fluid volume is within normal limits with single deepest pocket of 4.2 cm. The placenta is anterior and superior to the cervical os. There is no evidence of previa. The inferior edge of the placenta is 2.9 cm from the internal os. Marginal cord insertion at the inferior end of the placenta is demonstrated. The cervical length is normal at 3.9 cm. Cord arterial S/D = 3.5. Procedure Note Roberto Orta MD - 03/02/2024 For Patients: As a result of the Century Cures Act, medical imagingexams and procedure reports are released immediately into your electronicmedical record. You may view this report before your referring provider.If you have questions, please contact your health care provider. INDICATION: History of labor TECHNIQUE: Limited transabdominal two-dimensional delacruz-scale ultrasoundexamination. COMPARISON: 02/13/2024, 02/02/2024, 01/19/2024, 01/09/2024 and 11/25/2023 FINDINGS: There is a living fetus in cephalic lie with gestational age of 22 weeks 2days and EDC of 07/03/2024. The heart rate is measured at 144 beats per minute and the rhythmappears regular. The amniotic fluid volume is within normal limits with single deepestpocket of 4.2 cm. The placenta is anterior and superior to the cervical os. There is noevidence of previa. The inferior edge of the placenta is 2.9 cm from theinternal os. Marginal cord insertion at the inferior end of the placenta isdemonstrated. The cervical length is normal at 3.9 cm. Cord arterial S/D = 3.5. IMPRESSION: 1. Living fetus in cephalic lie with gestational age of 22 weeks 2 daysand EDC of 07/03/2024. 2. Marginal cord insertion at the inferior end of the placenta andinferior placental edge 2.9 cm from the internal os. Dictated by Roberto Orta MD @ 03/02/2024 7:27:15 AM (Electronically Signed) Bianca Mistry MD [place] * ANTI HCV (11/23/2023 2:33 PM SHEET METAL INSTALLER) HEPATITIS C ANTIBODY Non-Reacti ve Non-React dorinda 11/23/2023 10:01 PM SHEET METAL INSTALLER [facility] Comment:Please note, per www .CDC.gov: If a patient is known to be at high risk of HCV infection, or is symptomatic, and the physician's suspicion of HCV infection is high, HCV RNA testing is often employed and is of diagnostic value, even after an initial negative anti-HCV test result. Blood BLOOD SPECIMEN / Unknown Venipuncture / Unknown 11/23/2023 2:33 PM SHEET METAL INSTALLER 11/23/2023 2:37 PM SHEET METAL INSTALLER Bianca Mistry MD SEND OUTS [facility] [address] [place] [address], * ANTI HIV 1/2 (11/23/2023 2:33 PM SHEET METAL INSTALLER) Pathologist [facility] HIV-1/HIV-2 SCREEN Non-Reacti ve Non-Reacti ve 11/23/2023 9:47 PM SHEET METAL INSTALLER [facility] Comment:HIV-1 p24 and HIV-1/ HIV-2 Ab Not Detected. Blood BLOOD SPECIMEN / Unknown Venipuncture / Unknown 11/23/2023 2:33 PM SHEET METAL INSTALLER 11/23/2023 2:37 PM SHEET METAL INSTALLER Bianca Mistry MD SEND OUTS Performing Organization Address City/[facility] Co de Phone Number [facility] [address] [place] [address] * FLAGMAN THIN PREP PAP SCREEN IMAGED (03/19/2019 4:20 PM CDT) Pathologist [facility] Case Report Gynecologic Cytology Report ? Case: [id number] ? Authorizing Provider: ??Bianca Mistry MD Collected: ? 03/19/2019 1620 ? Ordering Location: ? [facility] ?? Received: ?03/19/2019 1723 ? Clinic ? First Screen: ?Marium Garcia ? Specimen: ?FLAGMAN ThinPrep Vial Screening, Cervical ? 04/01/2019 1:08 PM CDT [facility] INTERPRETATION/ RESULT NEGATIVE FOR INTRAEPITHELIAL LESION OR MALIGNANCY (NIL) (none) 04/01/2019 1:08 PM CDT [facility] NISM(S) Fungal organisms morphologically consistent with Su species 04/01/2019 1:08 PM CDT [facility] SPECIMEN ADEQUACY Satisfactory for evaluation No endocervical component seen 04/01/2019 1:08 PM CDT [facility] HPV REQUEST HPV and PAP 04/01/2019 1:08 PM CDT [facility] Date of LMP 03/01/2019 04/01/2019 1:08 PM CDT [facility] Last Pap Date 03/22/16 04/01/2019 1:08 PM CDT [facility] Last Pap Result NIL 9 1:08 PM CDT [facility] Abnormal Pap or Keyser Bx in last 5 years No 04/01/2019 1:08 PM CDT [facility] Menstrual Status Regular Periods 04/01/2019 1:08 PM CDT [facility] Keyser Bx Done Today No 04/01/2019 1:08 PM CDT [facility] Additional Information None given 04/01/2019 1:08 PM CDT [facility] Automated Review Successful 04/01/2019 1:08 PM CDT [facility] Comment:Specimen processed s uccessfully by automated conveyor system dispatcher device, [employer], [employer] ANCILLARY TESTING FLAGMAN HPV Ordered, Please see separate report 04/01/2019 1:08 PM CDT [facility] Note The pap test is a screening technique, not a diagnostic procedure. ??It is used primarily to screen for squamous cancers and precursor lesions. ??Published studies have shown that it is subject to both false negative and false positive results. ??The pap test should not be used as the sole means to diagnose or exclude pre-malignant and malignant lesions. Cytology is screened and interpreted at [facility] - [address], [place] [address] and [facility] - [address]; [place] [address] and [facility] - [address]; [place] [address] and [facility] [address]; [place] [address] 04/01/2019 1:08 PM CDT [facility] Other (Cervical) Non-Blood / Unknown 03/19/2019 4:20 PM CDT 03/19/2019 5:23 PM CDT Bianca Mistry MD PATHOLOGY/CYTOL OGY [facility] [address] [place] [address], [place] from Last 3 Months or Most Recently Relevant to Health Maintenance Advance Directives Documents on File Type Date Recorded Patient Manager Lab Expl anation Healthcare Directive 08/05/2020 020 * Full Code (Latest Code Status on File) Date Activated Date Inactivated Comments 11/22/2013 10:59 AM 11/23/2013 10:47 PM * Full Code Date Activated Date Inactivated Comments 11/22/2013 9:36 AM 11/22/2013 10:48 AM * Full Code Date Activated Date Inactivated Comments 11/21/2013 9:05 AM 11/22/2013 9:34 AM * Full Code Date Activated Date Inactivated Comments 11/20/2013 3:02 PM 11/21/2013 9:05 AM Care Teams Field Health Officer Relationship Specialty Start Date End Date Bianca Mistry MD [address] [place] [address] PCP - General Family Practice 09/04/12
[2024-05-26 09:14] LABS: Amnisure Rom* Negative
--- NOTE | 2024-05-26 09:16 | CRLHL7_ITS ---
For Patients: As a result of the Century Cures Act, medical imaging exams and procedure reports are released immediately into your electronic medical record. You may view this report before your referring provider. If you have questions, please contact your health care provider. INDICATION: History of delivery, rule out rupture of membranes and cramping TECHNIQUE: Ultrasound OB pelvis transabdominal. Real-time delacruz-scale imaging of the fetus was performed as well as color Doppler and spectral Doppler analysis of the umbilical artery. COMPARISON: None. FINDINGS: Estimated date of delivery by LMP: 07/03/2024, gestational age of 34 weeks and 4 days heart rate: 129 beats per minute. Presentation: Cephalic. Placenta: Anterior. YAZ: 11.8 centimeters with single deepest pocket measuring 5.5 centimeter Cervical length: Cervix is closed and measures 4.1 centimeters. IMPRESSION.: Jiménez living intrauterine in cephalic presentation. Normal closed cervix measuring 4.1 centimeters. Normal amniotic fluid with YAZ of 11.8 centimeters and single deepest pocket measuring 5.5 centimeters. Dictated by Shaila Shelton MD @ 05/26/2024 11:14:32 AM (Electronically Signed)
--- NOTE | 2024-05-26 09:28 | P.OBLDTN_ITS ---
OB - Triage/Final Diagnosis Visit Information Date Seen: 05/26/24 Narrative: The patient is a 34 year old 7 para 3 at 34.4 weeks gestation by LMP and 1st trimester ultrasound, who presents with increased discharge and cramping for the last 2 days. She has not had a gush of fluid. Mild increase in baseline discharge. Some down her leg this morning. Otherwise only a pink tinge when wiping. No regular contractions. Mild and occasional nausea. Otherwise feeling fine. History of 31 week delivery and 2 term deliveries. Evaluation Laboratory results: Laboratory Tests 05/26/24 Range/Units 08:58 Membrane Rupture Negative Vital signs: Vital Signs - 24 hr 05/26/24 08:39 05/26/24 08:44 Temperature 98.1 F Pulse Rate 97 Respiratory Rate 17 Blood Pressure 114/71 Comments: Pelvic: White, clumpy vaginal discharge present without pooling. Fetus (Single) Heart Rate Baseline: 150 Medical Resident Variability: Moderate (6-25) Monitor Accelerations: Present Monitor Decelerations: None Final Diagnosis (1) Bacterial vaginosis in : Status: Acute Problem details: Wet prep shows clue cells. Will treat with metronidazole for 1 week. (2) Candidiasis of vagina during : Status: Acute Problem details: Wet prep shows yeast. Will treat with vaginal miconzole once daily for 1 week. (3) Vaginal discharge during in third trimester: Status: Acute Problem details: Amnisure negative. Ultrasound shows normal YAZ and no cervical dilation. NST reactive. Wet prep shows yeast and bacterial vaginosis as above. Treated as above. Follow up for routine appt with primary in 1 week. Follow up sooner if signs of labor or preeclampsia in the meantime.
[2024-05-26 10:06] LABS: Appearance Urine Clear (Clear); Bilirubin Urine Negative (Negative); Blood Urine 1+ (Negative); Color Urine Yellow (Yellow); Glucose Urine Negative (Negative); Ketones Urine 1+ (Negative); Leukocyte Esterase Urine 1+ (Negative); Nitrite Urine Negative (Negative); Protein Urine Negative (Negative); Urobilinogen Urine 0.2 (0.2-1.0); pH Urine 6.5 (5.0-8.5)
[2024-05-26 10:20] LABS: Clue Cells <20% Clue Cells Seen (None Seen); Trichomonas No Trichomonas Seen (None Seen); Yeast Yeast Seen (None Seen)
[2024-05-26 10:28] LABS: Squamous Epithelial Cell Urine Few (None-Few)
--- NOTE | 2024-05-26 11:23 | PC.OBNST ---
NST Note NST Note Start: 05/26/24 08:30 Freq: ONCE Status: Active Protocol: Document 05/26/24 10:25 KSO (Rec: 05/26/24 11:19 KSO [id number]) NST Note 7 Para (# of births) 3 EDC 07/03/24 Gestational Age In Weeks & Days 34 Weeks & 4 Days High Risk Factors History of Labor/ Delivery Patient Presented with Complaint(s) of Contractions/cramping,Leaking fluid Reactive Yes RAJ Grady, RN; Kel Stephens RN Date 05/26/24 Reactive Yes RAJ Hwang RN Date 05/26/24 OB NST charge Yes Complete NST Note via Write Note Yes The provider's electronic signature indicates the NST is reactive/appropriate for gestational age. *Note to provider: If an addendum is required, open the patient's chart and click on the note under the Nurse/Allied Health tab.
[2024-05-27 11:43] LABS: Strep B DNA Probe Negative (Negative)
[2024-05-27 11:58] LABS: Strep B Susceptibility Needed? No
== END 2024-05-26 11:07 | disposition home or self-care (01) ==
LOC: OB OUT 08:24 → OB 08:29
PROVIDERS: PCP Family Medicine; Visit Provider Surgery
DX: O23.599 Infection of other part of genital tract in pregnancy, unspecified trimester (principal); B96.89 Other specified bacterial agents as the cause of diseases classified elsewhere; O98.819 Other maternal infectious and parasitic diseases complicating pregnancy, unspecified trimester; B37.31 Acute candidiasis of vulva and vagina; O26.893 Other specified pregnancy related conditions, third trimester; N89.8 Other specified noninflammatory disorders of vagina
CPT/HCPCS: 59025; 76815; 76817; 81001; 81003; 84112; 87081; 87086; 87210; 87653; G0463

== ENCOUNTER 2024-07-03 02:44 | Inpatient (IN) | payer BC, SELFPAY ==
[2024-07-03] VITALS (45 sets, daily range): BP systolic 98–137; BP diastolic 61–89; PULSE 71–108; RESP 16–20; TEMP 36.6–37.7; O2SAT 94–100; BMI 29.5
--- OUTSIDE RECORDS SUMMARY | 2024-07-03 01:39 | XMS_ITS | Clinical Summary ---
Author Organization [email or web address] Address [place] [address] 07 Care Team Providers Care Superintendent [employer] Name Role Phone Fede, Bianca Orlando MD Primary Care Provider Allergies Active Allergy Reactions Criticality Noted Date Comments Penicillins 04/23/2008 Pseudoephedrine Rash 05/24/2013 Medications Medication Sig Dispensed Refills Start Date End Date Status vitamin-folic acid 1 mg ( RX) tablet/capsule Take 1 tablet by mouth once daily. 0 03/19/2019 Active Breast Pump PurchaseIndications: Care and examination of lactating mother Electric breast pump for home use. Gestational age at delivery: 40 weeks. Reason for need: return to work. Length of need: 99 months (lifetime use) 1 Each 05/23/2024 Active Active Problems Problem Noted Date Diagnosed Date Iron deficiency anemia 04/20/2024 Elderly multigravida in third trimester 02/13/20 History of delivery, currently in third trimester 02/13/2024 Marginal insertion of umbili brenda cord affecting management of mother in third trimester 02/13/2024 Overview (05/09/2024): Screening non MFM scan 03/01/24 NDICATION: History [...] 03/02/2024 7:27:15 AM INITIAL LEVEL II SONOGRAM [facility] 02/13/24 eferred By: BIANCA MISTRY MD Indications Code 19 weeks gestation of Z3A.19 Advanced maternal age, multigravida 88497 2013 31w4d PTD 2019 molar with D&C [...] There is no change with transfundal pressure. [facility] High-risk supervision 01/10/2024 Overview (05/07/2024): Swapnil Richards : 1990 [facility] ULTRASOUND/TESTING PATIENT Support person name: Chuy ULTRASOUND [...] AMA 04/2023 ectopic 12/2022 SAB w/ D&C 2020, 2015 Term 2019 Molar w/ D&C 2013 31w4d PTD PREVIOUS ULTRASOUNDS: 02/13/24 19w6d EFW 329 grams, percentile: 55. Low lying placenta measuring 1.5- 1.9cm from the internal os. Marginal cord insertion 01/09/24 15w2d EDC 06/30/2024. Anterior placental edge overlies the internal cervical os ECHO: REFERRING PROVIDER/CLINIC: Bianca Mistry MD, [place] Primary provider approves scheduling of recommended ultrasounds/testing: [...] -The recommended follow up was scheduled with [facility] before the patient left our office today. 11/23/2023 Overview (05/31/2024): Estimated Date of Delivery: 07/03/24 Patient's last menstrual period was 09/27/2023 (approximate). Marginal cord insertion Low lying placenta- RESOLVED GBS- 28wk labs- GLUCOSE,GESTATIONAL Date Value Ref Range Status 04/19/2024 125 70 - 139 mg/dL Final HEMOGLOBIN Date Value Ref Range Status 04/19/2024 9.7 (L) 12.0 - 16.0 g/dL Final TREPONEMA PALLIDUM Date Value Ref Range Status 04/19/2024 Non-Reactive Non-Reactive Final Last Tdap- 04/19/24 Last Flu vaccine- 08/31/23 OB Labs: ABORH [...] . Laterality Date DILATION AND CURETTAGE 2018 VA UNLISTED PROCEDURE MIDDLE EAR Tm graft TYMPANOSTOMY as a child Problems (from 11/23/23 to present) No problems associated with this episode. Falguni Way RN ....11/23/2023 2:33 PM Estimated Date of Delivery Comme nts Yes 07/03/2024 Resolved Problems Problem Noted Date Diagnosed Date Resolved Date Low-lying placenta in third trimester 02/13/2024 05/10/2024 Overview (05/09/2024): Screening non MFM scan 03/01/24 NDICATION: History [...] 03/02/2024 7:27:15 AM INITIAL LEVEL II SONOGRAM [facility] 02/13/24 eferred By: BIANCA MISTRY MD Indications Code 19 weeks gestation of Z3A.19 Advanced maternal age, multigravida 24590 2013 31w4d PTD 2019 molar with D&C [...] no change with transfundal pressure. 12/31/2022 01/27/2023 Overview (12/31/2022): Estimated Date of Delivery: 08/18/23 Patient's last [...] ? DILATION AND CURETTAGE 2018 ? ? VA UNLISTED PROCEDURE MIDDLE EAR Tm graft ? ? TYMPANOSTOMY as a child No data on file. Problems (from 12/29/22 to present) No problems associated with this episode. Michaela Joe RN ....12/31/2022 3:43 PM Encounter for supervision of normal in second trimester 08/13/2020 12/31/2022 06/23/2020 12/31/2022 Overview (11/18/2020): Component Latest Ref Rng & Units 11/10/2020 [...] week US: Level 2 US done at [facility] patient was 20 3/7 weeks gestation [...] lb 11.3 oz) M Vag-Spont EPIDURAL Y CHERELEL Comments: labor Name: DONNY RICHARDS Apgar1: 9 [...] Surgical History: . Laterality Date ? ? VA UNLISTED PROCEDURE MIDDLE EAR Tm graft ? ? TYMPANOSTOMY as a child No data on file. Problems (from 05/26/20 to present) No problems associated with this episode. Tori Rhoades RN.....06/23/2020 11:33 AM Supervision of other normal 05/26/2020 06/23/2020 09/05/2019 06/23/2020 Overview (09/05/2019): Estimated Date of Delivery: 03/30/20 Patient's last [...] Name: DONNY RICHARDS Apgar1: 9 Apgar5: 9 1 Create lab [...] child No data on file. Problems (from 12/10/19 to present) No problems associated with this episode. Tori Rhoades, RAJC.....09/05/2019 8:26 AM History of delivery, currently 08/15/2015 02/06/2018 care, subsequent 07/15/2015 02/06/2018 Overview (01/05/2016): Flu shot 07/15/2015 Hx delivery at 31w4d, will need progesterone shots starting at 16 weeks. It's a girl! GBS NEGATIVE HEMOGLOBIN (g/dL) Date Value 12/29/2015 11.3* Vaginal delivery 11/22/2013 10/18/2014 labor 11/20/2013 10/18/2014 Abnormal quad screen 08/13/2013 015 Overview (11/20/2013): Normal Level II ultrasound Subchorionic hemorrhage 06/08/201309/27 Supervision of normal first 05/24/2013 10/18/2014 Overview (10/22/2013): Rubella non-immune Quad screen shows increased risk of NTD, perinatology consult, reassuring, level 2 ultrasound at 20 weeks. TDaP 10/22/2013 Encounters Date Type Department Care Team Description 07/02/2024 11:15 AM CDT Ancillary Procedure [facility] [address] [place] [address] [address] Arrived 07/02/2024 7:50 AM CDT OB Encounter [facility] [address] [place] [address] Bianca Mistry MD Care (39w 6d/) 07/02/2024 Travel 06/25/2024 2:15 PM CDT OB Encounter [facility] [address] [place] [address] Bianca Mistry MD Care (38w 6d/) 06/24/2024 Travel 06/18/2024 8:40 AM CDT OB Encounter [facility] [address] [place] [address] [address] Bianca Mistry MD Care (37+6) 06/18/2024 Travel 06/11/2024 8:40 AM CDT OB Encounter [facility] [address] [place] [address] [address] Bianca Mistry MD Care (36w 6d) 06/11/2024 Travel 06/04/2024 9:05 AM CDT OB Encounter [facility] [address] [place] [address] [address] Bianca Mistry MD Care (35w 6d/) 06/04/2024 Travel 05/26/2024 Orders Only [facility] Scanner 1 scan: (1-Ord) [facility], URINE CULTURE, 05/26/2024 05/26/2024 Orders Only [facility] Scanner 1 scan: (1-Ord) [facility], STREP B DNA, 05/26/2024 05/26/2024 Orders Only [facility] Scanner 1 scan: (1-Ord) CHILDRENS, URINE CULTURE, 05/26/2024 05/26/2024 Orders Only [facility] Scanner 1 scan: (1-Ord) [facility], MULTIPLE LABS, 05/26/2024 05/26/2024 Orders Only [facility] Scanner 1 scan: (1-Ord) [facility], OB LIMITED, 05/26/2024 05/26/2024 Orders Only [facility] Scanner 1 scan: (1-Ord) [facility], AMNISURE ROM, 05/26/2024 05/26/2024 Orders Only [facility] [address] [place] [address] Louis Gracia MD <No scans attached> 05/23/2024 9:15 AM CDT OB Encounter [facility] [address] [place] [address] [address] Bianca Mistry MD Care (34w 1d) 05/23/2024 Travel 05/10/2024 11:20 AM CDT OB Encounter [facility] [address] [place] [address] Bianca Mistry MD Care (32w 2d/) 05/10/2024 7:45 AM CDT - 05/10/2024 11:59 PM CDT Hospital Encounter [facility] [address] [place] [address] Sudha Isaacs MD Supervision of high risk [...] - 05/03/2024 11:59 PM CDT Hospital Encounter [facility] [address] [facility] [place] [address] Bianca Mistry MD Iron deficiency anemia, unspecified iron deficiency anemia type (Primary Dx) 05/03/2024 Travel 04/26/2024 12:00 PM CDT - 04/26/2024 11:59 PM CDT Hospital Encounter [facility] [address] [place] [address] Iron deficiency anemia, unspecified iron deficiency anemia type (Primary Dx) 04/26/2024 Hospital/[facility] Telephone Encounter [facility] [address] [place] [address] Rasheeda Chavarria RN Pre Procedure (PVP) 04/26/2024 Travel 04/24/2024 Telephone [facility] [address] [address] Adriane Lazcano NP Appointment 04/24/2024 Phone Office Visit [facility] [address] [phone] Erica Dias MD Error-please disregard (Encounter opened in error. ) 04/23/2024 Nurse Triage [facility] [address] [place] [address] Bianca Mistry MD Fatigue 04/20/2024 Telephone [facility] [address] [place] [address] Bianca Mistry MD Infusion Therapy 04/19/2024 3:15 PM CDT OB Encounter [facility] [address] [place] [address] [address] Bianca Mistry MD Care (29 weeks and 2 days/) 04/19/2024 Travel from Last 3 Months Immunizations Name Administration Dates Next Due AMB Influenza, IIV4 PF (=>6 mos Flulaval,Fluzone Fluarix)(Flu Clinic Only) 08/11/2018 COVID-19 VACCINE SPIKEVAX (M ODERNA 50MCG/0.5ML) 12YO+ PFS 09/12/2023 COVID-19 vaccine (Moderna 100mcg/0.5mL) PF, MDV 01/21/2021,12/24/2020 COVID-19 vaccine (Pfizer-Bio NTech 30mcg/0.3mL) 12YO+ BIVALENT PF, MDV 06/17/2022 DTP 12/15/1992, 9,1988,06/23,1988 HIB HbOC (HibTITER) 04/18/1990 Hepatitis B (Peds) 01/13/2000,09/09/1999, 999 Human Papilloma Virus Vaccine 04/12/2011, 009,07/26/2008 INFLUENZA, IIV3 PF (AGE >= 6 MO) 06/18/2024 Influenza, IIV3 (Age >=3 years) 07/10/2013,07/26 Influenza, [...] 9 PURFE ERST, BB Thors on Delivery Location:[facility] Comments: labor 2015 Term 41w 0d 3.15 kg (6 lb 15 oz) F Vag Epidur al N Livin g Bel Tappe r Delivery Location:[facility] 2018 Molar 10w 5d Comments:D&C 2020 Term 40w 3d 6h 00m M Vag Prakashur dalila N Carly Drake MD Complications:None Delivery Location:Hospital ( [facility]) 2022 SAB 9w5 d SPONTA NEOUS Comments:blighted ovum , D&C 2022 Ectopic Demis e Current Summary Episode Dates Number of Fetuses Estimated Date of Delivery 11/23/2023 - Present (07/03/2024) 07/03/2024 (set by Bianca Landis, RN on 11/23/2023 based on Alternate KONG Entry) Dating Summary Based On KONG GA Diff Last Menstrual Period on 09/27/2023 (Approximate ) 07/03/2024 Same Alternate KONG Entry 07/03/2024 Working Vitals Pregravid Weight Height TWG (As of 07/03/2024) Pregrav id BMI 1.566 m (5' 1.65) [...] Progress Notes - OB Encounte r - 07/02/2024 - GA:39w6d 07/02/2024 - 39w6d - Bianca Mistry MD SUBJECTIVE: Swapnil Richards is a 34 y.o. female at 39+6 weeks. No concerns. See visit comments. OBJECTIVE: see OB vitals flow sheet NST: baseline 130-140 bpm, moderate variability, but no accelerations or decelerations. Tocometer: occasional contractions. ASSESSMENT : 39+6 weeks gestation Marginal cord insertion AMA PLAN: Labor signs and symptoms reviewed with patient including painful regular contractions or leaking fluid. Non reactive NST, BPP later this morning. Discussed if BPP not reassuring, would move to induction today. Discussed possible induction later this week if she does not go into labor on her own. Bianca Mistry MD .................... 07/02/2024 8:33 AM [facility] - GA:38w6d 06/25/2024 - 38wd - Bianca Mistry MD SUBJECTIVE: Swapnil Richards is a 34 y.o. female at 38+6 weeks. No concerns. See visit comments. OBJECTIVE: see OB vitals flow sheet ASSESSMENT : 38+6 weeks gestation AMA Marginal cord insertion PLAN: Labor signs and symptoms reviewed with patient including painful regular contractions or leaking fluid. RTC 1 weeks. Bianca Mistry MD .................... 06/25/2024 2:27 PM [facility] 06/18/2024 - GA:37w6d 06/18/2024 - 37wd - Bianca Mistry MD SUBJECTIVE: Swapnil Richards is a 34 y.o. female at 37+6 weeks. No concerns. See visit comments. OBJECTIVE: see OB vitals flow sheet ASSESSMENT : 37+6 weeks gestation AMA Marginal cord insertion PLAN: Labor signs and symptoms reviewed with patient including painful regular contractions or leaking fluid. RTC 1 weeks. Bianca Mistry MD .................... 06/18/2024 9:01 AM [facility] 06/11/2024 - GA:36w6d 06/11/2024 - 36w6d - Bianca Mistry MD SUBJECTIVE: Swapnil Richards is a 34 y.o. female at 36+6 weeks. No concerns, other than some increased discharge since finishing treatment for bacterial vaginosis and yeast. Not particularly bothersome at this point. See visit comments. OBJECTIVE: see OB vitals flow sheet ASSESSMENT : 36+6 weeks gestation AMA Marginal cord insertion PLAN: Labor signs and symptoms reviewed with patient including painful regular contractions or leaking fluid. RTC 1 weeks. Bianca Mistry MD .................... 06/11/2024 8:49 AM [facility] 06/04/2024 - GA:35w6d 06/04/2024 - 35w6d - Bianca Mistry MD SUBJECTIVE: Swapnil Richards is a 34 y.o. female at 35+6 weeks. No concerns. See visit comments. OBJECTIVE: see OB vitals flow sheet ASSESSMENT : 35+6 weeks gestation AMA Marginal cord insertion, normal growth ultrasounds Hx delivery PLAN: Labor signs and symptoms reviewed with patient including painful regular contractions or leaking fluid. RTC 1 weeks. Bianca Mistry MD .................... 06/04/2024 9:13 AM [facility] 05/23/2024 - GA:34w1d 05/23/2024 - 34w1d - Bianca Mistry MD SUBJECTIVE: Swapnil Richards is a 34 y.o. female at 34+1 weeks. No concerns. See visit comments. OBJECTIVE: see OB vitals flow sheet ASSESSMENT : 34+1 weeks gestation Low lying placenta is now resolved Marginal cord insertion, normal interval growth on follow up US with [facility] AMA PLAN: labor signs and symptoms reviewed with patient including pain, cramping, bleeding or leaking fluid. RTC 2 weeks with GBS. Bianca Mistry MD .................... 05/23/2024 9:22 AM Progress Notes - OB Encounte r - 05/10/2024 - GA:32w2d 05/10/2024 - - Bianca Mistry MD SUBJECTIVE: Swapnil [...] interval growth on follow up US with [facility] AMA PLAN: labor signs and symptoms reviewed with patient including pain, cramping, bleeding or leaking fluid. RTC 2 weeks. Bianca Mistry MD .................... 05/10/2024 11:52 AM Progress Notes - Hospital En counter - 05/10/2024 - GA:32w2d 05/10/2024 - - Ralph Brewer MD [facility]/SW US OB FOLLOW UP PER FETUS (63946.0) +Transvaginal ultrasound (TVUS) 05196.0 32w2d Estimated Date of Delivery: 07/03/24 34 y.o. [id number] Your patient had an ultrasound with [facility] on 05/10/24 . The report is ready and can be found in the Results review section of the [facility]. The Impression from the report is below. Problem list updated Patient Active Problem List Diagnosis Code Z34.90 MPP High-risk supervision O09.90 Elderly multigravida in third trimester O09.523 History of delivery, currently in third trimester O09.893 Marginal insertion of umbilical cord affecting management of mother in third trimester O43.193 Iron deficiency anemia D50.9 US OB FOLLOW UP PER [facility]ETUS (92366.0) +Transvaginal ultrasound (TVUS) 76399.0 Referred By: BIANCA MISTRY MD Indications Code 32 weeks gestation of Z3A.32 Advanced maternal age, multigravida 72124 2013 31w4d PTD 2018 molar with D&C [...] as needed. Medical Decision Making: Moderate Level 77651 Moderate number/complexity of problems including an undiagnosed [...] Services Provided: Procedures Code FOLLOW UP GROWTH 33274.0 TRANSVAGINAL ULTRASOUND 39631.0 Thank you for allowing us to participate in her care Ralph Brewer MD Maternal /Critical Care Medicine [facility] [phone] office [phone] Cell/text Progress Notes - OB Encounte r - 04/19/2024 - GA:29w2d 04/19/2024 - w2d - Bianca Mistry MD SUBJECTIVE: Swapnil Richards [...] Marginal cord insert, follow up ultrasound with [facility] 05/10 Discussed her palpitations, will plan to [...] r - 03/08/2024 - GA:23w2d 03/08/2024 - 23w2d - Bianca Mistry MD SUBJECTIVE: Swapnil Richards is a 34 y.o. female at 23+2 weeks. Has been having hip pain, working with chiropractor. No concerns. See visit comments. OBJECTIVE: see OB vitals flow sheet ASSESSMENT : 23+2 weeks gestation AMA Hx delivery, cervical length remained normal Low lying placenta, resolved Marginal cord insertion, follow up ultrasound with [facility] 05/10/24 PLAN: labor signs and symptoms reviewed with patient including pain, cramping, bleeding or leaking fluid. RTC 4 weeks with diabetes, hemoglobin and syphilis screening. Bianca Mistry MD .................... 03/08/2024 4:15 PM Progress Notes - Hospital En counter - 02/13/2024 - GA:19w6d 02/13/2024 - 19w6d - Sudha Isaacs MD [facility] Ultrasound 02/13/24. Your patient had an ultrasound with [facility] on 02/13/24 The report is ready and can be found in the Results review section of the [facility] chart. The Impression from the report is below. Thank you for the opportunity to participate in the care of this [place] patient. Sudha Isaacs MD .................... 02/13/2024 8:32 AM Referred By: BIANCA MISTRY MD Indications Code 19 weeks gestation of Z3A.19 Advanced maternal age, multigravida 33157 2013 31w4d PTD 2019 molar with D&C [...] -The recommended follow up was scheduled with [facility] before the patient left our office today. [...] as this is the preferred modality by [facility]. We reviewed the duration of [...] as needed. Medical Decision Making: Moderate Level 92908 Multiple Diagnoses including with AMA, low lying placenta, marginal CI, hx Moderate Data including review of prior ultrasound and review of prior external notes, ordering additional ultrasound Low risk of mortality to the fetus from amniocentesis which was considered and declined. Services Provided: Procedures Code DETAIL ANATOMY 35247.0 TRANSVAGINAL ULTRASOUND 37658.0 Progress Notes - OB Encounte r - 02/06/2024 - GA:18w6d 02/06/2024 - w6d - Bianca Mistry MD SUBJECTIVE: Swapnil Richards [...] r - 01/09/2024 - GA:14w6d 01/09/2024 - w6d - Bianca Mistry MD SUBJECTIVE: Swapnil Richards [...] . Laterality Date DILATION AND CURETTAGE 2018 VA UNLISTED PROCEDURE MIDDLE EAR Tm graft TYMPANOSTOMY [...] or concerns. Will do an eConsult with [facility] regarding management and recommendations for cervical length [...] of estimated date of delivery: Yes Thalassemia (Mosotho, Ghanaian, Mediterranean, or background): MCV less than 80: No Neural tube defect (Meningomyelocele, Spina bifida, or Anencephaly): No Congenital heart defect: No Down syndrome: No Sherman-Sachs (Ashkenazi Restoration, Cajun, Lao Citizen Of [place]): No Bill disease (Ashkenazi Restoration): No Familial dysautonomia (Ashkenazi Restoration): No Sickle cell disease or trait (): [...] of Beginnings book and book inserts, discussed [id number] medications, and follow up. - Encouraged patient to call clinic at [phone] with any vaginal bleeding, fluid leaking from [...] Center 12/14/2023 4:05 PM Bianca Mistry MD [facility] Bianca Landis RN .................... 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 Plan of Treatment Upcoming Encounters Date Type Department Care Team (Late st Contact Info) Description 07/04/2024 8:00 AM CDT OB Encounter [facility] [address] [place] [address] Bianca Mistry MD [address] [place] [address] Health Maintenance Due Date Last Done Comments Pap test for age 21-65 03/19/2024 9, 03/19/2019, 03/22/2016, Additional history exists COVID-19 vaccine series ( season) 2024 09/12/2023, 06/17/2022, 08/17/2021, Additional history exists BMI (ht and wt on same day) for age 18+ 11/23/2024 11/23/2023, 09/12/2023, 05/18/2023, Additional history exists Depression screening for age 12+ 12/13/2024 12/14/2023, 01/29/2021, 09/04/2019, Additional history exists Tetanus booster 04/19/2034 04/19/2024, 09/26, 11/17/2015, Additional history exists HIV for age 15-65 Completed 11/23/2023, , 05/26/2020, Additional history exists Hepatitis C screening for age 18-79 Completed 11/23/2023, 12/30/2022, 05/26/2020, Additional history exists Tdap Completed 04/19/2024, 09/26, 11/17/2015, Additional history exists Influenza for age 9-49 Completed , 08/31/2023, 06/17/2022, Additional history exists Pneumococcal series for age 6-64 Aged Out No longer eligible based on patient's age to complete this topic RSV vaccine for adults or (No Doses Required) Completed Procedures Procedure Name Priority Date/Time Associated Diagnosis Comments US OB BIOPHYSICAL PROFILE SINGLE WO NST Routine 07/02/2024 11:49 AM CDT Supervision of high risk in third trimester Marginal insertion of umbilical cord affecting management of mother in third trimester SCAN-PATHOLOGY REPORT 05/26/2024 12:00 AM CDT SCAN-LABORATORY REPORT 05/26/2024 12:00 AM CDT SCAN-LABORATORY REPORT 05/26/2024 12:00 AM CDT SCAN-PATHOLOGY REPORT 05/26/2024 12:00 AM CDT SCAN-LABORATORY REPORT 05/26/2024 12:00 AM CDT SCAN-ULTRASOUND REPORT 05/26/2024 12:00 AM CDT US OB FOLLOW UP ANY TRI SINGLE [...] supervision of other normal in second trimester ANTI HIV 1/2 Routine 11/23/2023 2:33 PM NETWORKING TECHNOLOGY INSTRUCTOR Encounter for supervision of other normal in first trimester ANTI HCV Routine 11/23/2023 2:33 PM NETWORKING TECHNOLOGY INSTRUCTOR Encounter for supervision of other normal in first trimester HEAD OF HUMAN RESOURCES THIN PREP PAP SCREEN IMAGED Routine 03/19/2019 4:20 PM CDT Cervical cancer screening from Last 3 Months or Most Recently Relevant to Health Maintenance Results * US OB BIOPHYSICAL PROFILE SINGLE WO NST (07/02/2024 11:49 AM CDT) Anatomical Region Laterality Modality Ultrasound 07/02/2024 4:01 PM CDT Impressions 07/02/2024 4:01 PM CDT Normal biophysical profile score of 8 out of 8. Dictated by Jorge White MD @ 07/02/2024 4:01:49 PM (Electronically Signed) Narrative 07/02/2024 4:01 PM CDT For Patients: ??As a result of the Cures Act, medical imaging exams and procedure reports are released immediately into your electronic medical record. ??You may view this report before your referring provider. ??If you have questions, please contact your health care provider. INDICATION: Marginal insertion of umbilical cord affecting management of mother in third trimester COMPARISON: 05/10/2024 TECHNIQUE: Real time delacruz scale imaging of the fetus was performed. Without non-stress testing. FINDINGS: Sonographic imaging demonstrates a single living intrauterine gestation. ??Fetus demonstrates a regular cardiac rate of 136 beats per minute. ??Fetus has a vertex position. The amniotic fluid volume appears normal and there is a single deepest pocket measurement of 4.0 cm. ??The fetus was active and demonstrated normal breathing movements. There was normal flexion and extension of the trunk and extremities. ?? Procedure Note Jorge White MD - 07/02/2024 For Patients: As a result of the Cures Act, medical imagingexams and procedure reports are released immediately into your electronicmedical record. You may view this report before your referring provider.If you have questions, please contact your health care provider. INDICATION: Marginal insertion of umbilical cord affecting management of mother inthird trimester COMPARISON: 05/10/2024 TECHNIQUE: Real time delacruz scale imaging of the fetus was performed. Withoutnon-stress testing. FINDINGS: Sonographic imaging demonstrates a single living intrauterine gestation.Fetus demonstrates a regular cardiac rate of 136 beats per minute. Fetushas a vertex position. The amniotic fluid volume appears normal and thereis a single deepest pocket measurement of 4.0 cm. The fetus was activeand demonstrated normal breathing movements. There was normal flexion andextension of the trunk and extremities. IMPRESSION: Normal biophysical profile score of 8 out of 8. Dictated by Jorge White MD @ 07/02/2024 4:01:49 PM (Electronically Signed) Bianca Mistry MD US * SCAN-PATHOLOGY REPORT (05/26/2024 12:00 AM CDT) Only the most recent of2 resultswithin the time period is included. Scanner OTHER * SCAN-LABORATORY REPORT (05/26/2024 12:00 AM CDT) Only the most recent of3 resultswithin the time period is included. Scanner OTHER * SCAN-ULTRASOUND REPORT (05/26/2024 12:00 AM CDT) Anatomical Region Laterality Modality Other Scanner OTHER * Growth Follow Up Any Trimester (CPT 56269) If BPP w/NST needed use Testing section for order (05/10/2024 9:05 AM CDT) Anatomical Region Laterality Modality , 2or 3 TRIMESTER Ultrasound 05/10/2024 7:46 AM CDT Narrative 05/10/2024 9:18 AM CDT Referred By: BIANCA ??FEDE ?? Indications Code 32 weeks gestation of Z3A.32 Advanced maternal age, multigravida 53836 2013 31w4d PTD 2019 molar with D&C [...] as needed. Medical Decision Making: Moderate Level 79156 ?Moderate number/complexity of problems including an undiagnosed [...] Services Provided: Procedures Code FOLLOW UP GROWTH 12878.0 TRANSVAGINAL ULTRASOUND 21880.0 Procedure Note Ralph Brewer MD - 05/10/2024 Referred By: BIANCA MISTRY MD IndicationsCode 32 weeks gestation of [id number].32 Advanced maternal age, [id number] 2013 31w4d PTD 2019 molar with D&C [...] discussed asneeded. Medical Decision Making: Moderate Level 82331 Moderate number/complexity of problems including an undiagnosed [...] health, etc. Services Provided: ProceduresCode FOLLOW UP [id number] TRANSVAGINAL [id number] Sudha Isaacs MD * TREPONEMA PALLIDUM (04/19/2024 4:28 PM CDT) TREPONEMA PALLIDUM Non-Reacti ve Non-Reacti ve 04/20/2024 2:21 PM CDT [facility] Blood BLOOD SPECIMEN / Unknown Venipuncture / Unknown 04/19/2024 4:28 PM CDT 04/19/2024 4:32 PM CDT Bianca Mistry MD SEND OUTS Performing Organization Address City/[facility]/ZIP Co de Phone Number [facility] [address] [place] [address], [place] * (ABNORMAL) HEMOGLOBIN (04/19/2024 4:28 PM CDT) [facility] HEMOGLOBIN 9.7(L) 12.0 - 16.0 g/dL 04/19/2024 4:45 PM CDT [facility] MCV 89 80 - 100 fL 04/19/2024 4:45 PM CDT [facility] Blood BLOOD SPECIMEN / Unknown Venipuncture / Unknown 04/19/2024 4:28 PM CDT 04/19/2024 4:32 PM CDT Bianca Mistry MD HEMATOLOGY Performing Organization Address City/[facility]/ZIP Co de Phone Number [facility] [address] [place] [address], [place] [phone] * GLUCOSE,GESTATIONAL (04/19/2024 4:28 PM CDT) Pathologist [facility] GLUCOSE,GESTAT IONAL 125 70 - 139 mg/dL 04/19/2024 4:45 PM CDT [facility] Blood BLOOD SPECIMEN / Unknown Venipuncture / Unknown 04/19/2024 4:28 PM CDT 04/19/2024 4:32 PM CDT Bianca Mistry MD CHEMISTRY Performing Organization Address [facility]/ZIP Co de Phone Number [facility] [address] [place] [address], [place] [phone] * ANTI HCV (11/23/2023 2:33 PM NETWORKING TECHNOLOGY INSTRUCTOR) Pathologist [facility] HEPATITIS C ANTIBODY Non-Reacti ve Non-React dorinda 11/23/2023 10:01 PM NETWORKING TECHNOLOGY INSTRUCTOR [facility] Comment:Please note, per www .CDC.gov: If a patient is known to be at high risk of HCV infection, or is symptomatic, and the physician's suspicion of HCV infection is high, HCV RNA testing is often employed and is of diagnostic value, even after an initial negative anti-HCV test result. Blood BLOOD SPECIMEN / Unknown Venipuncture / Unknown 11/23/2023 2:33 PM NETWORKING TECHNOLOGY INSTRUCTOR 11/23/2023 2:37 PM NETWORKING TECHNOLOGY INSTRUCTOR Bianca Mistry MD SEND OUTS Performing Organization Address [facility] Co de Phone Number [facility] [address] [place] [address], * ANTI HIV 1/2 (11/23/2023 2:33 PM NETWORKING TECHNOLOGY INSTRUCTOR) HIV-1/HIV-2 SCREEN Non-Reacti ve Non-Reacti ve 11/23/2023 9:47 PM NETWORKING TECHNOLOGY INSTRUCTOR [facility] TR[facility]AT[facility] Comment:HIV-1 p24 and HIV-1/ HIV-2 Ab Not Detected. Blood BLOOD SPECIMEN / Unknown Venipuncture / Unknown 11/23/2023 2:33 PM NETWORKING TECHNOLOGY INSTRUCTOR 11/23/2023 2:37 PM NETWORKING TECHNOLOGY INSTRUCTOR Bianca Mistry MD SEND OUTS Performing Organization Address [facility] Co de Phone Number [facility] [address] [place] [address], * HEAD OF HUM[employer] THIN PREP PAP SCREEN IMAGED (03/19/2019 4:20 PM CDT) Case Report Gynecologic Cytology Report ? Case: [id number] ? Authorizing Provider: ??Bianca Mistry MD Collected: ? 03/19/2019 1620 ? Ordering Location: ? [facility] ?? Received: ?03/19/2019 1723 ? Clinic ? First Screen: ?Marium Garcia ? Specimen: ?HEAD [employer] H[employer] ThinPrep Vial Screening, Cervical ? 04/01/2019 1:08 PM CDT [facility] Walkabout [facility] ENTRAL LABORATORY INTERPRETATION/ RESULT NEGATIVE FOR INTRAEPITHELIAL LESION OR MALIGNANCY (NIL) (none) 04/01/2019 1:08 PM CDT [facility] NISM(S) Fungal organisms morphologically consistent with Su species 04/01/2019 1:08 PM CDT [facility] SPECIMEN ADEQUACY Satisfactory for evaluation No endocervical component seen 04/01/2019 1:08 PM CDT [facility] HPV REQUEST HPV and PAP 04/01/2019 1:08 PM CDT [facility] Date of LMP 03/01/2019 04/01/2019 1:08 PM CDT [facility] Last Pap Date 03/22/16 04/01/2019 1:08 PM CDT [facility] Last Pap Result NIL 9 1:08 PM CDT [facility] Abnormal Pap or Burton Bx in last 5 years No 04/01/2019 1:08 PM CDT [facility] Menstrual Status Regular Periods 04/01/2019 1:08 PM CDT [facility] Burton Bx Done Today No 04/01/2019 1:08 PM CDT [facility] Additional Information None given 04/01/2019 1:08 PM CDT [facility] Automated Review Successful 04/01/2019 1:08 PM CDT [facility] Comment:Specimen processed s uccessfully by automated technical director device, [employer] System, [employer] ANCILLARY TESTING HEAD OF HUMAN RES[employer] HPV Ordered, Please see separate report 04/01/2019 1:08 PM CDT [facility] Note The pap test is [...] lesions. Cytology is screened and interpreted at [facility] - [address], [place] [address] and [facility] - [address]; [place] [address] and [facility] - [address]; [place] [address] and [facility] [address]; [place] [address] 04/01/2019 1:08 PM CDT [facility] Other (Cervical) Non-Blood / Unknown 03/19/2019 4:20 PM CDT 03/19/2019 5:23 PM CDT Bianca Mistry MD PATHOLOGY/CYTOL OGY [facility] [address] [place] [address], [place] from Last 3 Months or Most Recently Relevant to Health Maintenance Advance Directives Documents on File Type Date Recorded Patient Real Estate Associate Expl anation Healthcare Directive 08/05/2020 020 * [...] 3:02 PM 11/21/2013 9:05 AM Care Teams Superintendent Seed Mill Relationship Specialty Start Date End Date Bianca Mistry MD [facility] [place] [id number] PCP - General Family Practice 09/04/12
--- NOTE | 2024-07-03 03:03 | PM.OBHPLI ---
OB - H&P: HPI Labor/Induction History of Present Illness Date Seen: 07/03/24 Chief Complaint: The patient is a 34 year old 7 para 2133 at 40 weeks gestation by LMP and confirmed with 1st trimester US, who presents with SROM at 0000, now in active labor. Chief complaint: OB phone triage/unscheduled Narrative: Swapnil Richards is a 34 year old at 40 weeks by LMP confirmed with 1st trimester US who had SROM at 0000. At that time contractions were every 10 minutes, however contraction intensity and frequency increased over the next 1-2 hours and she is now having contractions every 2-3 minutes. complicated by AMA, marginal cord insertion and low lying placenta (resolved in 3rd trimester). she has followed with MFM given history of delivery, her cervical length remained normal and level 2 as well as follow up growth US have been reassuring. History of Present Dating criteria: based on LMP care: good care Ultrasounds: normal 1st trimester US and normal mid trimester US Abnormal ultrasound findings: marginal cord insertion Labs Blood type: O (+) positive Rubella: immune RPR/VDLR: nonreactive GBS status: negative HBsAG: negative Review of Systems Status of ROS: Reports: 6 or more systems reviewed and unremarkable except as noted in History and below Meds Home Medications and Allergies Home Medications ?Medication ?Instructions ?Recorded ?Confirmed ?Type docosahexaenoic acid 200 mg 200 mg PO DAILY 05/26/24 05/26/24 History capsule ( DHA) Allergies Allergy/AdvReac Type Severity Reaction Status Date / Time penicillin V Allergy Severe Verified 06/08/23 12:36 pseudoephedrine Allergy Severe Hives Verified 06/08/23 12:36 [From [facility]] OB - H&P: Exam Physical Exam: Vital signs: Pulse BP 88 122/78 07/03/24 02:29 07/03/24 02:29 Constitutional: Constitutional: no acute distress Routine HEENT Exam: Head: Present atraumatic Eye: Present EOMI and PERRL ENT: Present mucous membranes moist Routine Neck Exam: Neck: Present full ROM Routine Respiratory Exam: Respiratory: Present CTA bilaterally Routine Cardiovascular Exam: Cardiovascular: RRR Detailed Labor and Delivery Exam: Patient Gravid: Yes Dilation (cm): 7 Effacement (%): 80 Cervix position: anterior Consistency: soft Contraction frequency (min): 2 Contraction intensity: Strong/Firm Fetus (Single): Station: -2 Amniotic Membrane Status: SROM Amniotic Membrane Fluid Description: Clear Heart Rate Baseline: 130 Monitor Accelerations: Present Monitor Decelerations: None [facility] Variability: Moderate (6-25) Routine Extremities Exam: Extremities: Present full ROM Routine Skin Exam: Present intact Routine Neurological Exam: Present alert, oriented X3 and CN II-XII intact Routine Psychiatric Exam: Present normal affect and normal thought process OB - Problem Based A/P Additional Plan (1) Term : Status: Acute (2) SROM (spontaneous rupture of membranes): Status: Acute (3) Marginal insertion of umbilical cord: Status: Acute Plan Patient in active labor. Labor analgesia per patient request. She is hoping to avoid epidural. Anticipate Delivery/Labor/Induction Plan Plan: expectant management
[2024-07-03] MEDS: LIDOCAINE 1 % PF 30 ML INJECTION (05:41)
[2024-07-03] MEDS: miSOPROStoL 800 MCG/4 TABLET PR ×2 (05:45→07:18)
[2024-07-03] MEDS: fentaNYL 100 MCG/2 ML inj 50 MCG IVP ×2 (06:10→08:15)
[2024-07-03 06:14] LABS: Hematocrit 36.6 % (33.0-51.0); Hemoglobin* 12.3 gm/dL (12.0-16.0); Immature Granulocytes Pct Auto 0.6 %; Lymphocytes Percent Auto 3.5 % (20-44); Mean Corpuscular HGB Conc 34 gm/dL (32-36); Mean Corpuscular Hemoglobin 31 pg (26-34); Mean Corpuscular Volume 93 fL (80-100); Monocytes Percent Auto 3.6 % (0.0-11.0); Neutrophils Percent Auto 92.3 % (42.0-72.0); Platelet Count* 232 K/uL (140-440); RDW Coefficient of Variation % 14.1 % (11.5-15.5); Red Blood Count 3.93 m/uL (4.00-5.20); White Blood Count* 22.12 K/uL (4.50-11.00)
[2024-07-03 06:15] LABS: Slide Review Reflex No
--- NOTE | 2024-07-03 06:39 | PM.OBCN1 ---
OB - CN: HPI Date of Consult Time Seen by Provider: 06:39 Date Seen: 07/03/24 Patient: Rebecca Patient Consult date: 07/03/24 Requesting Physician: Colleen Mistry MD Primary Care Provider: Colleen Mistry MD Consult Narrative Narrative: The patient is a 34 year old G 7 P 2133 now 4 at 40 weeks gestation that was admitted to the [facility] on 07/03/24 for spontaneous onset of labor. I was called by Dr. Fierro for after delivery due to hemorrhage concerning for possible cervical laceration versus retained products of conception. Delivery was complicated by shoulder dystocia. Patient is unmedicated. Total quantitative blood loss at this time 1200 mL. I consented the patient for laceration repair possible dilation and curettage. All of her questions were answered. History of Present Dating criteria: based on LMP care: good care Ultrasounds: normal 1st trimester US and normal mid trimester US History History 7 Elective abortions Para 4 Spontaneous abortions Hx # Term Pregnancies Ectopic pregnancies Hx # Pregnancies Multiple births Number of Living Children 3 Labs Blood type: O (+) positive Rubella: immune RPR/VDLR: nonreactive GBS status: negative HBsAG: negative OB Labs: Lab Assessment Start: 07/03/24 02:42 Freq: ONCE Status: Complete Protocol: PC.OBGBS Activity Type Activity Date Activity User E-sign Co-sign Detail Recorded Client Recorded Date Recorded By Document 07/03/24 02:46 [id number] 07/03/24 02:47 [facility] 07/03/24 02:46 Lab Assessment GBS Status negative GBS Additional Criteria None No Treatment Needed OK Are Labs Available Yes Maternal Blood Type O Maternal RH Factor Positive Evaluate Maternal Rubella Immune Status Immune Hepatitis B Surface Antigen Negative Maternal HIV Status Negative Maternal Syphillis (RPR) Status Negative [facility] Medical History Health care directive on file ?Z78.9 - Other specified health status (ICD-10) History of delivery ?Z87.51 - Personal history of pre-term labor (ICD-10) Vaginal delivery ?O80 - Encounter for full-term uncomplicated delivery (ICD-10) Surgical History (Updated 02/02/23 @ 12:48 by Kate Henriquez) History of D&C ?Z98.890 - Other specified postprocedural states (ICD-10) History of ear surgery ?Z98.890 - Other specified postprocedural states (ICD-10) Family History (Updated 02/02/23 @ 12:50 by Kate Henriquez) Son Thyroid disease Father High blood pressure Emphysema of lung Social History Smoking Status: Never smoker Do you use any of these nicotine containing products: None How often do you have a drink containing alcohol: 2-3 times a week Alcohol type: beer and wine AUDIT-C Alcohol total score: 3 Non-prescribed substance use: denies use service: No Meds Home Medications and Allergies Home Medications ?Medication ?Instructions ?Recorded ?Confirmed ?Type docosahexaenoic acid 200 mg 200 mg PO DAILY 05/26/24 05/26/24 History capsule ( DHA) Allergies Allergy/AdvReac Type Severity Reaction Status Date / Time penicillin V Allergy Severe Verified 06/08/23 12:36 pseudoephedrine Allergy Severe Hives Verified 06/08/23 12:36 [From [facility]] OB - H&P: Exam Physical Exam: Vital signs: Pulse BP Pulse Ox 88 136/71 100 07/03/24 06:26 07/03/24 06:26 07/03/24 06:34 Narrative: Genitourinary: Second-degree perineal laceration will do a closer inspection of the cervix once I am back in the operating room. No active bleeding at this time. OB - Results Labs Labs: Short CBC 07/03/24 Range/Units 06:05 WBC 22.12 H (4.50-11.00) K/uL Hgb 12.3 (12.0-16.0) gm/dL Hct 36.6 (33.0-51.0) % Plt Count 232 (140-440) K/uL OB - CN: A/P Assessment and Plan (1) Term : Status: Acute (2) SROM (spontaneous rupture of membranes): Status: Acute (3) Marginal insertion of umbilical cord: Status: Acute (4) hemorrhage: Status: Acute Plan 1. Consent form reviewed and signed for laceration repair, possible dilation and curettage.
[2024-07-03] MEDS: CEFAZOLIN 2 GM INJ IVP (06:58)
--- NOTE | 2024-07-03 06:59 | W.PM.VAGD1_ITS ---
Procedure Delivery date: 07/03/24 Procedure Done: Global Procedure Details: Procedures Operation Date: 07/03/24 06:55 <No data on this case meets the specified criteria> Events: AMA Intrapartal Events: Excessive Bleeding Delivery monitor: external FHT Route of delivery: Laceration description: Perineal - 2nd Degree Estimated blood loss (mL): 1,025 Anesthesia type: None Complications: hemorrhage from cervical laceration vs retained products Narrative: The patient is a 34 year-old admitted on 07/03/2024 at 40 Weeks, 0 Days gestation for SROM in active labor.? Cervical exam on admission was 7 cm/80 % effaced/-3 station with membranes ruptured in vertex presentation.? Contractions were every 2-3 minutes.? heart rate demonstrated baseline 135 bpm with moderate variability, + accelerations, - decelerations; a category 1 tracing.? SROM occurred at 0000 with claer fluid. ? Labor Analgesia:? none ? Pitocin:? post delivery, IM ? Labor onset:? 0200 ? Complete:? 0440 ? Pushing:? 0440 ? heart tones during second stage were intermittently auscultated in the 130s. ? At 0528 a viable female delivered in vertex OA presentation over intact perineum via spontaneous vaginal delivery.? Infant was placed on maternal abdomen.? Cord was clamped and cut after a 30-60 second delay.? Nose and mouth were bulb suctioned.? Infant weight pending.? 8 at 1 minute and 9 at 5 minutes.? Shoulder dystocia: yes, 15 seconds.? Nuchal cord: no. ? Placenta delivered spontaneously and complete at 0536 with a 3 vessel cord. At this time, she was noted to have brisk vaginal bleeding, IM Pitocin given followed by rectal cytotec without improvement in blood loss. Uterus was firm. project manager/design manager called due to concern for cervical laceration. As we were waiting for arrival of OR team, she did pass a large clot/retained products. Due to her discomfort on exam, it was difficult to assess for additional retained products or to visualize the entire cervix. ? Mother and infant were stable after delivery. ? Lacerations:? 2nd degree perineal, repaired by Automation Tester in OR. ? Blood loss: 1025 mL. Blood loss measurement type: QBL ? Sponge and needles counts are correct. [place] Infant Gender: Female presentation: vertex Placental Delivery Description: Spontaneous Cord Description: 3 Vessels
[2024-07-03 07:19] LABS: Hematocrit 29.3 % (33.0-51.0); Hemoglobin* 10.1 gm/dL (12.0-16.0); Immature Granulocytes Pct Auto 0.6 %; Mean Corpuscular HGB Conc 35 gm/dL (32-36); Mean Corpuscular Hemoglobin 32 pg (26-34); Mean Corpuscular Volume 92 fL (80-100); Monocytes Percent Auto 5.5 % (0.0-11.0); Neutrophils Percent Auto 90.9 % (42.0-72.0); Platelet Count* 192 K/uL (140-440); RDW Coefficient of Variation % 14.1 % (11.5-15.5); Red Blood Count 3.18 m/uL (4.00-5.20); White Blood Count* 24.88 K/uL (4.50-11.00)
[2024-07-03 07:22] LABS: Slide Review Reflex No
[2024-07-03] MEDS: KETOROLAC 30 MG/ML inj IVP (07:27)
[2024-07-03 07:38] LABS: INR 0.96 (0.91-1.10); Prothrombin Time 13.3 Seconds
[2024-07-03 07:39] LABS: Fibrinogen* 327 mg/dL (200-450); Partial Thromboplastin Time* 24 Seconds (23-33)
--- NOTE | 2024-07-03 07:49 | P.PCN_ITS ---
Procedure Note Time Seen by Provider: 07:49 Date Seen: 07/03/24 Date of procedure: 07/03/24 Will [facility] bill your pro fee for this procedure?: Yes Procedure: Preoperative diagnosis: 34-year-old 7 para 2133 now 4 with hemorrhage possible cervical laceration possible retained products of conception Postoperative diagnosis: Cervical laceration x2, second-degree perineal laceration, uterine atony, retained amniotic sac membranes Procedure: Cervical laceration repair x2, manual evacuation of the uterus, second-degree perineal laceration repair Anesthesia: General endotracheal Surgeon: Lucero Benson MD IV fluid: 900 mL Urine output: 50 mL EBL 850. QBL from her delivery was 1025 mL so total blood loss 1875 mL Specimen: Uterine contents Findings: On exam under anesthesia there are 2 cervical lacerations 1 at the 2 o'clock position that was approximately 1 cm in length and 1 at the 8 o'clock position that was approximately 3 cm in length. There was a second-degree perineal laceration. Lower uterine segment atony. Procedure: Patient was taken to the operating room where general anesthesia was found be adequate. She was placed in the dorsal lithotomy position an exam under anesthesia was performed with the above findings as stated. The bladder was drained with straight catheterization. A weighted speculum was placed in the vaginal canal and John retractors were used for the vaginal sidewall retraction. The 8 o'clock cervical laceration was repaired with 3-0 Vicryl suture in a running locked manner. The 2 o'clock cervical laceration was repaired with 3-0 Vicryl and a figure of 8 manner. The second-degree perineal laceration was repaired in the usual manner with 3-0 Vicryl. After the lacerations were repaired the uterus was evacuated manually there is a small amount membranes with and the blood clot. There was at least 350 mL of blood clot within the lower uterine segment. Patient received 20 units Pitocin in 400 mL IV fluid wide open, 1 g IV TXA, Methergine 0.2 mg IM and 800 mg rectal Cytotec for lower uterine segment atony. A [place] system was placed per package guidelines. Sponge, lap and instrument counts were correct x2 at the end of the procedure. The patient was taken to the recovery room stable condition. Patient received 2 g IV Ancef prior to the start of the procedure. Laboratory results from 7:00 a.m. hemoglobin 10.1 down from 12.3 at 6:00 a.m. platelets 192 down from 232 at 6:00 a.m. The patient was typed and crossed for 2 units packed red blood cells. I am awaiting the coagulation test to determine F fresh frozen plasma as necessary.
[2024-07-03] MEDS: MEPERIDINE 25 MG/ML INJ 12.5 MG IVP (07:55)
--- NOTE | 2024-07-03 08:01 | W.ANESCHARGE ---
Anesthesia Charges Start Date/Time Anesthesia Start Date: 07/03/24 Anesthesia Start Time: 06:43 Stop Date/Time Anesthesia Stop Date: 07/03/24 Anesthesia Stop Time: 07:54 Summary Emergency: MEDICAL CLAIMS PROCESSOR
[2024-07-03] MEDS: OXYTOCIN 30 unit/500 ML in NS 30 UNIT/500 ML BAG 100 UNIT IVPB (08:21)
[2024-07-03] MEDS: IBUPROFEN 600 MG TABLET PO ×3 (10:04→22:30)
[2024-07-03 18:20] LABS: Hematocrit 30.1 % (33.0-51.0); Hemoglobin* 10.4 gm/dL (12.0-16.0); Immature Granulocytes Pct Auto 0.4 %; Lymphocytes Percent Auto 4.8 % (20-44); Mean Corpuscular HGB Conc 35 gm/dL (32-36); Mean Corpuscular Hemoglobin 32 pg (26-34); Mean Corpuscular Volume 91 fL (80-100); Monocytes Percent Auto 7.7 % (0.0-11.0); Neutrophils Percent Auto 87.1 % (42.0-72.0); Platelet Count* 188 K/uL (140-440); RDW Coefficient of Variation % 14.3 % (11.5-15.5); White Blood Count* 23.52 K/uL (4.50-11.00)
[2024-07-03 18:29] LABS: Slide Review Reflex Yes
[2024-07-03 18:38] LABS: INR 0.93 (0.91-1.10)
[2024-07-03 18:39] LABS: Partial Thromboplastin Time* 25 Seconds (23-33)
[2024-07-03 18:51] LABS: Slide Review Acceptable Review (Acceptable)
[2024-07-03] MEDS: BENZOCAINE/MENTHOL SPRAY 85 GM AEROSOL 1 APPLIC TOPICAL (22:33)
[2024-07-04] MEDS: ACETAMINOPHEN 500 MG TABLET 1000 MG PO ×2 (01:23→08:06)
[2024-07-04 04:26] LABS: Hemoglobin* 10.2 gm/dL (12.0-16.0)
[2024-07-04] MEDS: IBUPROFEN 600 MG TABLET PO (04:34)
[2024-07-04 04:35] VITALS: BP 115/70; PULSE 91; RESP 16; TEMP 36.8; O2SAT 99
--- NOTE | 2024-07-04 07:48 | P.DS_ITS ---
DS: Providers Provider Date Seen: 07/04/24 Date of admission: 07/03/24 02:44 Primary care physician: Colleen Mistry MD Admitting Clinician: Colleen Mistry MD Attending Physician on discharge: Colleen Mistry MD DS: Diagnosis Discharge Diagnosis (1) hemorrhage: Status: Acute Problem details: QBL 2L, required 2u pRBCs and 1u FFP, [place] placed due to uterine atony, 2 cervical lacerations repaired in the OR by [employer] (2) Cervical laceration: Status: Acute Problem details: 2 cervical lacerations repaired in the OR by [employer] (3) Vaginal delivery: Status: Acute Problem details: 2013, 2015 & 2020 and 2023 Exam Narrative: Exam Narrative: Gen: No acute distress Breast: large tender milk bleb on right nipple Abd: Soft, uterus firm and nontender at umbilicus Ext: Warm, dry, 2+ pedal pulses, no edema bilaterally. Calves non-tender to palpation. Const: Vital Signs, click to edit/add: Vital Signs - 24 hr 07/03/24 07:49 07/03/24 08:00 07/03/24 08:05 Temperature 98.2 F Pulse Rate 96 86 88 Pulse Rate [Left P ulse Oximeter] Respiratory Rate 18 20 18 Blood Pressure 137/87 131/76 129/88 Blood Pressure [Ri ght Arm] Pulse Oximetry 96 95 94 Oxygen Delivery Me thod Room Air Room Air Room Air 07/03/24 08:10 07/03/24 08:15 07/03/24 08:20 Temperature 98.4 F Pulse Rate 89 85 90 Pulse Rate [Left P ulse Oximeter] Respiratory Rate 18 16 18 Blood Pressure 123/83 122/86 124/82 Blood Pressure [Ri ght Arm] Pulse Oximetry 94 95 95 Oxygen Delivery Me thod Room Air Room Air Room Air 07/03/24 08:25 07/03/24 08:30 07/03/24 08:35 Temperature 98.2 F 98.2 F 98.1 F Pulse Rate 86 79 79 Pulse Rate [Left P ulse Oximeter] Respiratory Rate 18 20 18 Blood Pressure 117/75 127/86 122/74 Blood Pressure [Ri ght Arm] Pulse Oximetry 94 95 96 Oxygen Delivery Me thod Room Air Room Air Room Air 07/03/24 09:00 07/03/24 09:12 07/03/24 09:15 Temperature 98.3 F Pulse Rate 84 Pulse Rate [Left P ulse Oximeter] 78 81 Respiratory Rate 16 Blood Pressure 119/82 Blood Pressure [Ri ght Arm] 128/89 127/66 Pulse Oximetry 96 Oxygen Delivery Me thod Room Air 07/03/24 09:15 07/03/24 09:29 07/03/24 09:30 Temperature 98.0 F Pulse Rate 73 Pulse Rate [Left P ulse Oximeter] 81 78 Respiratory Rate 16 18 Blood Pressure 122/84 Blood Pressure [Ri ght Arm] 127/66 122/84 Pulse Oximetry 97 98 Oxygen Delivery Me thod Room Air Room Air 07/03/24 09:30 07/03/24 09:45 07/03/24 09:45 Temperature 98 F Pulse Rate Pulse Rate [Left P ulse Oximeter] 78 77 77 Respiratory Rate 16 18 Blood Pressure Blood Pressure [Ri ght Arm] 122/84 126/83 126/83 Pulse Oximetry 97 99 Oxygen Delivery Me thod Room Air Room Air 07/03/24 09:59 07/03/24 10:00 07/03/24 10:00 Temperature 99.3 F Pulse Rate 76 Pulse Rate [Left P ulse Oximeter] 76 76 Respiratory Rate 16 18 Blood Pressure 124/82 Blood Pressure [Ri ght Arm] 124/82 124/82 Pulse Oximetry 98 98 Oxygen Delivery Me thod Room Air Room Air 07/03/24 10:15 07/03/24 10:16 07/03/24 10:30 Temperature 99.3 F Pulse Rate Pulse Rate [Left P ulse Oximeter] 72 72 74 Respiratory Rate 16 Blood Pressure Blood Pressure [Ri ght Arm] 117/76 117/76 129/83 Pulse Oximetry 97 Oxygen Delivery Me thod Room Air 07/03/24 10:30 07/03/24 10:33 07/03/24 10:45 Temperature 99.3 F 99.3 F 98.6 F Pulse Rate 71 Pulse Rate [Left P ulse Oximeter] 74 71 Respiratory Rate 16 16 18 Blood Pressure 129/83 Blood Pressure [Ri ght Arm] 129/83 120/79 Pulse Oximetry 96 97 98 Oxygen Delivery Me thod Room Air Room Air Room Air 07/03/24 10:50 07/03/24 10:51 07/03/24 11:00 Temperature 98.6 F 98.6 F Pulse Rate 84 84 Pulse Rate [Left P ulse Oximeter] 81 Respiratory Rate 18 16 16 Blood Pressure 120/79 120/79 Blood Pressure [Ri ght Arm] 123/75 Pulse Oximetry 97 96 96 Oxygen Delivery Me thod Room Air Room Air Room Air 07/03/24 11:21 07/03/24 11:49 07/03/24 12:02 Temperature 98.6 F 99.6 F 99.6 F Pulse Rate 81 97 93 Pulse Rate [Left P ulse Oximeter] Respiratory Rate 16 16 16 Blood Pressure 123/75 121/77 124/71 Blood Pressure [Ri ght Arm] Pulse Oximetry 96 95 98 Oxygen Delivery Me thod Room Air Room Air 07/03/24 12:17 07/03/24 12:47 07/03/24 13:06 Temperature 99.5 F 98.9 F 99.9 F H Pulse Rate 77 83 87 Pulse Rate [Left P ulse Oximeter] Respiratory Rate 16 18 16 Blood Pressure 123/75 122/76 120/75 Blood Pressure [Ri ght Arm] Pulse Oximetry 96 95 95 Oxygen Delivery Me thod Room Air Room Air Room Air 07/03/24 14:06 07/03/24 14:07 07/03/24 14:07 Temperature 99 F Pulse Rate 83 Pulse Rate [Left P ulse Oximeter] Respiratory Rate 16 16 Blood Pressure 120/74 Blood Pressure [Ri ght Arm] Pulse Oximetry 95 Oxygen Delivery Me thod Room Air Room Air Room Air 07/03/24 18:40 07/03/24 23:09 07/04/24 04:35 Temperature 98.7 F 98.3 F 98.3 F Pulse Rate Pulse Rate [Left P ulse Oximeter] 95 82 91 Respiratory Rate 16 16 16 Blood Pressure Blood Pressure [Ri ght Arm] 113/69 98/65 115/70 Pulse Oximetry 95 97 99 Oxygen Delivery Me thod Room Air Room Air Room Air OB - DS: Summary Hospital Course Hospital Course: The patient is a 34 year-old admitted on 07/03/2024 at 40 Weeks, 0 Days gestation for SROM in active labor.? complicated by shoulder dystocia, cervical lacerations and hemorrhage. She delivered a viable female infant. She is . the patient has done well. She has no history of depression/anxiety. was traumatic and would monitor. Hemoglobin has stabilized at 10.2. She has a painful milk bleb on right nipple. She was seen by in hospital. Peripartum Data Infant delivery method: Vaginal Laceration description: Cervical - 2nd Degree (2 cervical lacerations, unclear degree, repaired by color television console monitor in OR) Procedures: Procedures Operation Date: 07/03/24 06:55 Actual Procedure Side Surgeon p CERVICAL LACERATION REPAIR X2, PERINEAL LACERATION REPAIR, MANUAL EVACUATION OF UTERUS Lucero Benson MD Gender: Female Status at Discharge Functional status at discharge: independent ambulation Overall status at discharge: patient is progressing back to baseline Time Spent with Patient Time attestation: Total time spent providing and/or coordinating discharge services: Discharge Plan Discharge Disposition: Home, Self-Care Date of Admission: 07/03/24 02:44 Primary Care Provider: Colleen Mistry Condition: Stable Anticipated Discharge Date/Time: 07/04/24 13:15 Discharge Medications: Continued DHA 200 mg capsule 200 mg PO DAILY Discharge Orders: Discharge Order (Routine); Ordered 07/04/24 Ordered By: Giovanna Ng Patient Education: OB Vaginal/Breast Feeding Additional Instructions: Discharge instructions were reviewed with the patient including signs and symptoms of infection and home going medications Nothing vaginally for 6 weeks: no tampons or intercourse Do not drive while taking narcotic pain medication(s) Off Work or School for 8 weeks Symptoms to report to doctor: * Bleeding that saturates more than one pad per hour * Passing clots larger than the size of a golf ball * Pain not relieved by prescribed medication * Fever above 100.4 degrees Fahrenheit * A foul vaginal odor * Difficulty in emotions, mood, and functions * Thoughts of hurting yourself and/or * Painful, reddened area in your breast * Any drainage, redness, or tenderness in your IV/epidural site * Severe headache that doesn't improve after taking medications * Changes in vision, including temporary loss of vision, blurred vision, and/or light sensitivity * Upper abdominal pain (usually under ribs on the right side) * Decrease in urination or painful, frequent urinating * Chest pain * Shortness of breath * Tenderness or pain with redness and/swelling in the calf(s) of your leg Optional 2-week visit: discuss infant feeding concerns, review control options and screen for anxiety/depression. 6-week visit for an annual exam. consultation services are available to all mothers and babies for the first year after delivery.? To make an appointment, please call [phone]. Follow Up Appointments: Colleen Mistry MD [Primary Care Provider] - Forms: [employer] Info Instructions DS:Data Additional Comments Additional comments: - Pelvic rest for 6 weeks (no intercourse, tampons or douching), or until one week after vaginal bleeding stops. - Daily activities for the first week should be limited to taking care of patient and her baby, and only as tolerated. - Call MD if fever > 100.4 degrees, bleeding more than 1 pad / hour, foul- smelling discharge, passage of golf-ball sized blood clots, or worsening of pain not controlled by medications. - Counseled on signs of post- depression - Contraception: Does not desire more children, discuss in outpatient setting.
[2024-07-04] MEDS: DOCUSATE SODIUM 100 MG CAPSULE PO (08:07)
[2024-07-04 08:53] VITALS: BP 98/57; PULSE 79; RESP 16; TEMP 36.7; O2SAT 98
[2024-07-05 01:01] LABS: Rapid Plasma Reagin (RPR) Non Reactive (Non Reactive)
== END 2024-07-04 16:20 | disposition home or self-care (01) | DRG 541 ==
LOC: OB OUT 02:44 → OB 02:44
PROVIDERS: Obstetrics & Gynecology; Admitting Provider Family Medicine; PCP Family Medicine; Visit Provider Family Medicine
PROC: 0UQG0ZZ Repair Vagina, Open Approach (ICD-10-PCS; principal; 2024-07-03 06:45)
DX: O69.89X0 Labor and delivery complicated by other cord complications, not applicable or unspecified (principal); O72.1 Other immediate postpartum hemorrhage; O66.0 Obstructed labor due to shoulder dystocia; O71.3 Obstetric laceration of cervix; O70.1 Second degree perineal laceration during delivery; O72.2 Delayed and secondary postpartum hemorrhage; Z3A.40 40 weeks gestation of pregnancy; Z37.0 Single live birth
CPT/HCPCS: 00940; 36415; 36430; 85018; 85025; 85384; 85610; 85730; 86592; 86850; 86900; 86901; 86922; 88305; 88307; 99140; A9270; J0330; J0690; J1100; J1885; J2003; J2175; J2210; J2405; J2590; J2704; J3010; P9016; P9017

== ENCOUNTER 2025-06-17 10:45 | Outpatient (RCR) | payer BC, SELFPAY | END 2025-09-11 11:33 | disposition home or self-care (01) | PROVIDERS: PCP Family Medicine; Visit Provider Family Medicine | DX: M62.89 Other specified disorders of muscle (principal); M62.08 Separation of muscle (nontraumatic), other site; Z51.89 Encounter for other specified aftercare | CPT/HCPCS: 97110; 97161; 97535 ==